=== PATIENT | female | born 1945 | race Caucasian/White ===

== ENCOUNTER 2024-12-05 11:40 | Inpatient (IN) | payer MEDICARE, SELFPAY ==
[2024-12-05] VITALS (11 sets, daily range): BP systolic 90–114; BP diastolic 44–94; BMI 44.6; BMI 41.7
[2024-12-05 08:38] LABS: % Basophils 0.1 % (0-2); % Eosinophils 0.1 % (0-6); % Immature Granulocytes 0.3 % (0-0.5); % Lymphocytes 5.2 % (20.5-51.1); % Monocytes 11.1 % (1.7-9.3); % Neutrophils 83.2 % (42.2-75.2); Absolute Lymphocytes 0.5 10^3/uL (1.2-3.4); Absolute Neutrophils 7.8 10^3/uL (1.4-6.5); Hematocrit 37.1 % (37.0-47.0); Hemoglobin 12.1 g/dL (12.0-16.0); Mean Corp Hgb Conc. 32.6 g/dL (33.0-37.0); Mean Corpuscular Hgb 30.4 pg (27.0-31.0); Mean Corpuscular Volume 93.2 fL (81.0-99.0); Nucleated Red Blood Cells % 0 %; Platelet Count 217 10^3/uL (130-400); Red Blood Cell Count 3.98 10^6/uL (4.20-5.40); Red Cell Dist. Width 17.1 % (11.5-14.5); White Blood Cell Count 9.3 10^3/uL (4.8-10.8)
[2024-12-05 08:58] LABS: ALT (SGPT) 26 U/L (0-35); AST (SGOT) 39 U/L (14-36); Albumin 4.2 g/dl (3.5-5.0); Alkaline Phosphatase 120 U/L (38-126); Blood Urea Nitrogen 24 mg/dl (7-17); Calcium 10.2 mg/dl (8.4-10.2); Carbon Dioxide 22 mmol/L (22-30); Chloride 107 mmol/L (98-107); Estimated Creatinine Clearance 48 ml/min; Glucose 83 mg/dl (70-99); Potassium 4.4 mmol/L (3.5-5.1); Sodium 142 mmol/L (135-145); Total Bilirubin 2.7 mg/dl (0.2-1.3); Total Protein 6.9 g/dl (6.3-8.2)
[2024-12-05 09:05] LABS: Urine Albumin 2+ (Neg - Trace); Urine Bilirubin 1+ (Negative); Urine Character Slightly Cloudy (Clear); Urine Color Yellow; Urine Glucose Negative (Negative); Urine Ketone 3+ (Negative); Urine Leukocyte Negative (Negative); Urine Nitrite Positive (Negative); Urine Occult Blood 1+ (Negative); Urine Specific Gravity 1.025 (<1.030); Urine Urobilinogen 1+ (Neg - 1+)
[2024-12-05 09:16] LABS: COVID-19 Antigen Negative (Negative)
--- NOTE | 2024-12-05 09:17 | ED.GENMED ---
History of Present Illness
General
Chief Complaint: Malaise
Source: patient
Exam Limitations: none
Time Seen by Provider: 12/05/24 08:14
History of Present Illness
History of Present Illness:
79-year-old female presents via EMS from facility. Staff at facility noticed increased weakness and hallucinations. They noted her to be confused. Patient denies any pain. There was no reported fever or cough. No other complaints at this time
Past History
Past History
ED Past Medical History: Arrthythmia (Atrial fib), Asthma, HTN, Hypercholesterolemia, Psychiatric (Anxiety, Depression) and Other (arthritis, chronic constipation, Colitis, GI bleeding, Cellulitis, Ulcers, Hemorrhoids, Chronic peripheral edema, )
ED Past Surgical History: Appendectomy, (X 1), Tonsilectomy and Urological (Bladder lift)
Social History
Tobacco: Non-smoker
Alcohol: None
Personal:
Living: alone
Phy Exam
Physical Exam
Physical Exam:
General: Well-developed female unkempt no acute respiratory distress
HEENT normocephalic atraumatic
Heart: Regular rate and rhythm
Lungs: Clear no wheeze
Abdomen is soft nontender nondistended
Extremities: No cyanosis but significant edema
Skin: Multiple areas of skin breakdown. There is intertrigo rash of the inguinal region. There is excoriation and subtle skin breakdown of the sacral region. There is erythema and blistering noted to the lower legs bilaterally
Course
Orders/Labs/Results
Orders:
Orders
12/05/24 08:29
CMP [Comprehensive Metabolic Panel] Urgent
Complete Blood Count/With Diff Urgent
NT-proBNP Urgent
Comment: ADD ON
12/05/24 08:46
CR Chest Portable - 1 View Urgent
Comment:
Reason For Exam: weakness
Reason Study Needs to be Portable: Unable to Transport
12/05/24 08:50
COVID-19 Antigen Urgent
Source: Nasal Swab
Urinalysis Reflex To Culture Urgent
Date Specimen was Collected: 12/05/24
Time Specimen was Collected: 08:48
Urine Microscopic Reflex Cult Urgent
Influenza A+B Rapid Molecular Urgent
TRACEY Source: Nasal Swab
Specimen Description:
Urine Culture Urgent
TRACEY Source: U
Specimen Description:
Date Specimen was Collected: 12/05/24
Time Specimen was Collected: 08:48
12/05/24 09:20
Add On- LAB Urgent
Tests Added?: bnp
12/05/24 11:14
0.9% Sodium Chloride 500 ml [Nss] 500 ml IV BOLUS
CefTRIAXone [Rocephin] 1,000 mg IV NOW STA
Abnormal Lab Results
12/05/24 12/05/24
08:29 08:50
RBC 3.98 L 10^6/uL
(4.20-5.40)
MCHC 32.6 L g/dL
(33.0-37.0)
RDW 17.1 H %
(11.5-14.5)
MPV 11.0 H fL
(7.4-10.4)
Absolute Neuts (auto) 7.8 H 10^3/uL
(1.4-6.5)
Absolute Lymphs (auto) 0.5 L 10^3/uL
(1.2-3.4)
Absolute Monos (auto) 1.0 H 10^3/uL
(0.1-0.6)
Neutrophils % 83.2 H %
(42.2-75.2)
Lymphocytes % 5.2 L %
(20.5-51.1)
Monocytes % 11.1 H %
(1.7-9.3)
BUN 24 H mg/dl
(7-17)
Creatinine 1.1 H mg/dL
(0.6-1.0)
Total Bilirubin 2.7 H mg/dl
(0.2-1.3)
AST 39 H U/L
(14-36)
Urine Ketones 3+ A
(Negative)
Ur Occult Blood Reflex 1+ A
(Negative)
Urine Nitrite (Reflex) Positive A
(Negative)
Urine Bilirubin 1+ A
(Negative)
Urine RBC 3-6 A /HPF
(0-2)
Urine WBC (Reflex) 16-20 A /HPF
(0-5)
Urine Bacteria (Reflex) Many A
(Negative)
Urine Albumin (Reflex) 2+ A
(Neg - Trace)
12/05/24 08:29
12/05/24 08:29
Vital Signs
Initial and Last Documented VS:
Initial Vital Signs
Temp Pulse Resp BP Pulse Ox
97.6 F 107 16 113/78 95
12/05/24 08:18 12/05/24 08:18 12/05/24 08:18 12/05/24 08:18 12/05/24 08:18
Last Documented Vital Signs
Temp Pulse Resp BP Pulse Ox
97.6 F 93 19 90/55 95
12/05/24 08:18 12/05/24 10:00 12/05/24 10:00 12/05/24 10:00 12/05/24 08:21
MDM/Problems Addressed
Differential Diagnosis Includes:
Weakness reported hallucinations. Question metabolic versus infectious. COVID and flu ordered. Urinalysis pending. Chest x-ray pending labs pending
*Critical Care Note
Total Time (30-74mins, 75-104mins- exclusive of procedures): Not Applicable
Update Note
Update Note:
Workup consistent with UTI. Blood pressure remains on the softer side 90s over 40s. Patient is slightly volume overloaded on exam but would benefit from some fluids. 500 was ordered. Rocephin ordered. Given encephalopathy likely related to
urinary tract infection will admit to hospital
ED Attending Note
-
Portions of this chart may have been created with voice recognition software.� Occasional wrong word or��sound alike� substitutions may have occurred due to the inherent limitations of voice recognition software.
Discharge Plan
Departure
Patient Disposition: Admit
Date of Disposition: 12/05/24
Time of Disposition: 11:19
Presentation/result/management discussed w/ accepting MD/DO: Hospitalist
Discharge Problem:
Acute UTI
Prescriptions:
No Action
amiodarone 200 mg Tablet
200 mg PO Q12H
sucralfate [Carafate] 1 gram Tablet
1 g PO BID
pantoprazole [Protonix] 40 mg Tablet,Delayed Release (Dr/Ec)
40 mg PO DAILY
dabigatran etexilate [Pradaxa] 75 mg Capsule
75 mg PO Q12H
magnesium oxide 400 mg magnesium Tablet
400 mg PO DAILY
acetaminophen [Tylenol] 325 mg Tablet
650 mg PO Q6H PRN (Reason: MILD PAIN)
therapeutic multivitamin Tablet
1 tab PO DAILY
ferrous sulfate 325 mg (65 mg iron) Tablet
325 mg PO DAILY
sertraline 25 mg Tablet
25 mg PO HS
mirtazapine 7.5 mg Tablet
7.5 mg PO HS
furosemide 40 mg Tablet
40 mg PO TUTHSA
Patient Comments:
06/30/2023, patient's family member believes that patient may have taken this medication on Friday (06/29/2023) to reduce swelling, but is unsure, family member states that patient took this medication on Friday.
sennosides [senna] 8.6 mg Tablet
8.6 mg PO DAILY
melatonin 3 mg Tablet
3 mg PO HS PRN (Reason: sleep)
levothyroxine 25 mcg Tablet
25 mcg PO DAILY AT 0700
nystatin [Nystop] 100,000 unit/gram Powder
1 applic TOPICAL BID
cholecalciferol (vitamin D3) 25 mcg (1,000 unit) Tablet
25 mcg PO HS
white petrolatum [Hydrophor] 42 % ointment
1 applic topical DAILYPRN PRN (Reason: dry skin)
pantoprazole 40 mg Tablet,Delayed Release (Dr/Ec)
40 mg PO DAILY Qty: 30 0RF
guaifenesin 600 mg Tablet Extended Release 12hr
600 mg PO Q12 Qty: 14 0RF
doxycycline hyclate 100 mg Capsule
100 mg PO Q12 Qty: 4 0RF
miconazole nitrate [Miconazorb AF] 2 % Powder
1 applic topical BID Qty: 85 0RF
cephalexin 500 mg Capsule
500 mg PO QID Qty: 10 0RF
alprazolam [Xanax] 0.25 mg Tablet
0.25 mg PO HS PRN (Reason: Mental Health/Anxiety) Qty: 5 0RF
Rx Instructions:
06/30/2023, patient filled this medication on 06/27/2023 for 30 tablets according to PDMP.
Referrals:
Luis Fernando Abrams MD [Family Provider] -
Interventions
Interventions:
*Risk Screen - Suicide Last Done: 12/05/24 08:18
*General Assessment Last Done: 12/05/24 08:18
*Neglect/Abuse Screening Last Done: 12/05/24 08:18
*ED- Fall Risk Assessment Last Done: 12/05/24 08:18
*ED COVID-19 Vaccine History Last Done: 12/05/24 08:18
Discharge Date and Time
Print Language: ALBANIAN
[2024-12-05 09:40] LABS: Urine Bacteria Many (Negative); Urine White Cell 16-20 /HPF (0-5)
[2024-12-05 11:09] LABS: NT-proBNP 3970 pg/ml
--- NOTE | 2024-12-05 11:20 | HPS.HSE ---
Addendum entered and electronically signed by Claudy Lua MD 12/05/24 15:33:
Addendum
Patient arrived to the floor and started to have low temperature. Blood pressure is stable
Constellation of metabolic encephalopathy/UTI/hypothermia/Tachycardia could be sepsis/septic shock POA
Change antibiotic regimen to IV cefepime/IV vancomycin
Order heating blanket
Order lactic acid
End
Original Note:
Family Physician
-
Family Physician: Luis Fernando Abrams
Chief Complaint
-
Weakness with visual hallucination at correction
History of Present Illness
79 years old female was transferred from correction for weakness and visual hallucination. History taken from the ER doctor. Patient was seeing cats and reportedly weak at correction. No fever. No hypoxia. In the ER, she did not have
leukocytosis. Urine was cloudy and started on intravenous antibiotic for urine tract infection. Patient was noticed to have severe cellulitic/erythematous skin/fungal infection of lower abdominal wall and groins. Noticed to have bruising on lower
pelvic area. No history of falls reported.
I called her son and he reported that patient was fairly independent 2 weeks ago but started to decline with weakness. Last week, she has been mostly in bed and not moving with lethargy. No history of falls. No history of fevers
Medical History
Past Medical History
Past Medical History: Reports Other (Obesity, chronic lymphedema, hypertension, hyperlipidemia, and anxiety, persistent atrial fibrillation, diastolic heart disease, history of cellulitis, obesity, GERD.)
Past Surgical History: Reports Other (No recent major surgery)
Social History
Tobacco: Non-smoker
Alcohol: None
Drug: None
Personal: Single
Living: Long-Term
Employment: Not Employed
Family History
Family History: Not pertinent
Allergies / Home Medications
Allergies reflects when Allergies were last updated in [facility].
Home Medications with original date entered in [facility]
Allergy/Medication List:
Allergies
Allergy/AdvReac Type Severity Reaction Status Date / Time
Penicillins Allergy Afib/RVR; Verified 06/29/23 23:51
tolerates
cephalosporin
Home Medications
amiodarone 200 mg tablet 200 mg PO DAILY Arrhythmia 06/06/22
dabigatran etexilate 75 mg capsule (Pradaxa) 75 mg PO Q12H Blood clot prevention/tx 06/06/22
magnesium oxide 400 mg PO DAILY Supplement 06/06/22
pantoprazole 40 mg tablet,delayed release (Protonix) 40 mg PO DAILY Gastrointestinal issue 06/06/22
sucralfate 1 gram tablet (Carafate) 1 g PO BID Gastrointestinal issue 06/06/22
mirtazapine 7.5 mg tablet 7.5 mg PO HS MENTAL HEALTH 01/16/23
sertraline 25 mg tablet 25 mg PO HS 01/16/23
therapeutic multivitamin 1 tab PO DAILY Supplement 01/16/23
cholecalciferol (vitamin D3) 25 mcg (1,000 unit) tablet 25 mcg PO DAILY Supplement 06/30/23
furosemide 40 mg tablet 40 mg PO DAILY Fluid Retention/Swelling 06/30/23
levothyroxine 25 mcg tablet 25 mcg PO DAILY AT 0700 Thyroid 06/30/23
nystatin 100,000 unit/gram topical powder (Nystop) 1 applic topical BID 06/30/23
sennosides 8.6 mg tablet (senna) 8.6 mg PO BID Constipation 06/30/23
acetaminophen 500 mg tablet 1,000 mg PO BIDPRN PRN mild pain 12/05/24
alginate dressing 2' X 2' (Restore Calcium Alginate) 1 ea topical MOWEFR 12/05/24
alprazolam 0.25 mg tablet (Xanax) 0.25 mg PO HS 12/05/24
biotin 10,000 mcg chewable tablet (Hair, Skin and Nails (biotin)) 10,000 mcg PO DAILY 12/05/24
brimonidine 0.2 % eye drops 2 drp BOTH EYES DAILY 12/05/24
ceramides 1,3,6-II (CeraVe topical cream) 1 applic topical DAILYPRN PRN dry skin 12/05/24
cyanocobalamin (vitamin B-12) 5,000 mcg sublingual tablet (Vitamin B-12) 5,000 mcg sublingual DAILY 12/05/24
diphenhydramine HCl 25 mg tablet 1 mg PO Q6HPRN PRN itchiness 12/05/24
guaifenesin 600 mg tablet, extended release 12 hr 600 mg PO BIDPRN PRN cough 12/05/24
loratadine 10 mg tablet 10 mg PO DAILY PRN allergies 12/05/24
loteprednol etabonate 0.38 % eye gel drops (Lotemax SM) 1 drp BOTH EYES DAILY 12/05/24
sodium chloride 5 % eye drops 1 drp BOTH EYES DAILY 12/05/24
triamcinolone acetonide 0.1 % lotion 1 applic topical BIDPRN PRN itching 12/05/24
white petrolatum 71.3 % topical ointment (Desitin Multi-Purpose) 1 applic topical DAILYPRN PRN sores 12/05/24
Review of Systems
-
History Source: Patient (Review of system not reliable as patient was lethargic and mostly sleepy)
A 12 point ROS was completed and negative except as noted: Yes
Constitutional: Denies Fever
EENT: Denies Sore Throat
Respiratory: Denies Cough
Cardiac: Denies Chest Pain
Abdomen/GI: Denies Abdominal Pain
: Denies Frequency
Musculoskeletal: Denies Joint Pain
Skin: Denies Itching
Neurological: Denies Headache or Numbness
Psych: Denies Panic Disorder
Physical Exam
Vital Signs
Vital Signs
Temp Pulse Resp BP Pulse Ox
97.6 F 93 19 90/55 95
12/05/24 08:18 12/05/24 10:00 12/05/24 10:00 12/05/24 10:00 12/05/24 08:21
Physical Exam
General: No Apparent Distress and Morbidly Obese; No Pain
HEENT: Moist mucous membranes and Atraumatic
Respiratory: Decreased Breath Sounds; No Wheezes
Cardiac: S1/S2 and Regular Rhythm
GI: Soft (Obese, nontender)
Skin: Rash (Erythematous rash lower abdominal, groin sloughing of skin with odor )
Neuro: Awake (Fall back a sleep with snoring while examining her, she followed simple commands. )
Psych: Calm; No Agitated
Laboratory Results
-
12/05/24 08:29
12/05/24 08:29
Laboratory Results
Total Bilirubin 2.7 mg/dl (0.2-1.3) H 12/05/24 08:29
AST 39 U/L (14-36) H 12/05/24 08:29
ALT 26 U/L (0-35) 12/05/24 08:29
Alkaline Phosphatase 120 U/L (38-126) 12/05/24 08:29
Impression/Plan
-
79 years old female was brought in from correction with confusion and weakness
#Weakness with history of visual hallucination, likely toxic metabolic encephalopathy
Admit the patient to the hospital
Patient is arousable, followed commands but falls back asleep with snoring
History of seizure. No history of fever or headache. No hypoxia detected
Will do CAT scan of the head to rule out major pathology as patient on anticoagulation therapy
Will treat possible urinary tract infection
Will do blood culture x 2
Negative COVID and influenza
Empiric IV Rocephin for now
Follow-up with urine culture
Monitor on telemetry
# Hypotension, seems chronic
Will give gentle IV fluid, on clinical examination, positive bilateral edema/lymphedema and chest x-ray consistent with mild interstitial/alveolar cardiogenic pulmonary edema
Will continue with monitoring.
As needed midodrine.
# Lower abdominal wall/bilateral groin/lower pelvic/buttock area bruising erythema with odorous fungal infection
Will start wound care with clotrimazole antifungal
Consult wound care nurse
Check CPK
No history of fall per son( Ashish) but has been in bed for a week and not much ambulatory.
# Chronic bilateral lower extremity lymphedema
Morbid obesity
Continue with daily Lasix
# History of persistent A-fib.
Will get EKG
Per records, she is on amiodarone only. Possibly not on rate control medication due to history of low blood pressure,
# History of anxiety
Continue home medications hold
Nighttime mirtazapine, sertraline until mentation improves
# History of GERD, continue PPI, Carafate
# Renal insufficiency. Suspect underlying CKD 3A
Monitor renal function.
Total time spent to see the patient, examine the patient, review data and lab results, discuss treatment plan with patient, nursing staff, ER doctor around 75 minutes. �
[2024-12-05] MEDS: ROCEPHIN 1000 MG IV (11:53)
[2024-12-05] MEDS: NSS 500 IV (11:54)
--- NOTE | 2024-12-05 13:38 | CM ---
Patient resting in ED when seen. Patient from [facility] and per chart review lives in an independent apartment. Patient has had [facility] in the past. Patient has been to [facility] and [facility] in the past.
Patient PCP is Dr. Abrams and [place] [facility] is the pharmacy of choice. CM called to patient son Ashish Frank. Per Ashish patient uses wheelchair that she self propels or her walker. Patient normally alert and oriented. Patient family plan
for her to return to apartment when medically appropriate. Patient has her hearing aides and cell phone with her per son. Patient has [facility] care nurses [facility] per son. CM texted phone number for CM office to
patient son phone at his request. CM will continue to follow for discharge planning needs.
Plan; home with VN vs SNF pending medical treatment plan
[2024-12-05] MEDS: NSS 1000 IV (15:00)
[2024-12-05] MEDS: TYLENOL 1000 MG PO (15:00)
[2024-12-05] MEDS: VANCOCIN 530 MG IV (16:30)
[2024-12-05] MEDS: STERILE WATER FOR INJECTION 10 ML IV (16:30)
[2024-12-05] MEDS: MAXIPIME 1000 MG IV (16:30)
[2024-12-05] MEDS: PRADAXA 75 MG PO (17:47)
--- NOTE | 2024-12-05 19:19 | PHA.VAN.IN ---
Assessment
- Assessment
Renal Function: Appears similar to baseline
Historical Micro: History of MRSA infection
- Previous Dosing Experience
Previous Regimen: Vancomycin 1500mg IV Q24h
Date of Regimen: December 2022
Provided Trough of: 13
Provided AUC of: 529
Patient's SCR is: Similar to previous dosing experience
Patient's weight is: Similar to previous dosing experience
AUC Dosing Plan
- Dosing Variables
Dosing Weight (kg): 109.9
Dosing CrCl (ml/min): 49
Vd coefficient (L/kg): 0.5
- Empiric Dosing
Initial / Loading Dose: Vancomycin 1500mg administered 12/05 at 1630
Maintenance Regimen: Vancomycin 1250mg IV Q24h to start 12/06 at 0600
Estimated AUC (mcg*h/mL): 522
Estimated Peak (mcg*h/mL): 34.4
Estimated Trough (mcg/ml): 12.5
Estimated Half Life (H): 15.4
- Monitoring
No levels ordered at this time: Will order levels prior to steady state.
Pharmacokinetics Vancomycin I
- -
Patient Age: 79
Patient Sex: Female
Vancomycin Day #: 1
Indication: Bacteremia
Requesting Provider: Dr. Lua
Pertinent Antimicrobial Allergies:
Penicillins Allergy (Verified 06/29/23 23:51)
Afib/RVR; tolerates cephalosporin
Height / Weight:
Height 5 ft 4 in
Actual Weight 109.996 kg
Pertinent Past Medical History: BMI ~41
- Vital Signs / Lab Results
Temp Pulse Resp BP Pulse Ox
95.8 F L 115 20 114/78 96
12/05/24 18:45 12/05/24 15:15 12/05/24 15:15 12/05/24 15:15 12/05/24 15:15
Lab Results - Hematology
12/05/24
08:29
WBC 9.3
Lab Results - Chemistry
12/05/24
08:29
BUN 24 H
Creatinine 1.1 H
Estimated Creat Clear 48
Albumin 4.2
Lab Results - Urine
12/05/24
08:50
Urine Nitrite (Reflex) Positive A
Leukocyte Esterase Rfl Negative
Urine WBC (Reflex) 16-20 A
Ur Squamous Epith Cells 6-10
Urine Bacteria (Reflex) Many A
Microbiology Results
12/05/24 08:50 Influenza Types A & B (RACHEL) - Final
Nasal Swab Negative for Influenza A & B, NAAT
Negative results must be combined with clinical observations
and patient history.
Nucleic Acid Amplification test (NAAT)performed on the
[employer] platform.
[2024-12-05 19:30] LABS: Lactic Acid 0.9 mmol/L (0.7-2.0)
[2024-12-05 19:39] LABS: Creatine Phosphokinase 141 U/L (30-135)
[2024-12-05] MEDS: CARAFATE 1 GRAM PO (21:14)
[2024-12-05] MEDS: DESENEX/MITRAZOL/ZEASORB 1 APPLIC TOPICAL (21:14)
[2024-12-05] MEDS: SENOKOT 17.2 MG PO (21:15)
[2024-12-05] MEDS: LOTRIMIN 1% CREAM 1 APPLIC TOPICAL (21:15)
[2024-12-05] MEDS: REFRESH CELLUVISC GEL 1 DROPS OPHTH (22:41)
[2024-12-05] MEDS: XANAX PO (23:11)
[2024-12-06] VITALS (7 sets, daily range): BP systolic 89–120; BP diastolic 53–81; PULSE 105–114; O2SAT 95–96; BMI 41.7
[2024-12-06] MEDS: NSS 1000 IV ×2 (00:06→09:14)
[2024-12-06] MEDS: STERILE WATER FOR INJECTION 10 ML IV ×4 (00:33→23:12)
[2024-12-06] MEDS: MAXIPIME 1000 MG IV ×4 (00:33→23:12)
[2024-12-06] MEDS: VANCOCIN 275 MG IV (07:20)
[2024-12-06] MEDS: SYNTHROID 25 MCG PO (07:20)
[2024-12-06] MEDS: PRADAXA 75 MG PO ×2 (07:39→17:43)
[2024-12-06 08:27] LABS: Hematocrit 33.6 % (37.0-47.0); Hemoglobin 10.8 g/dL (12.0-16.0); Mean Corp Hgb Conc. 32.1 g/dL (33.0-37.0); Mean Corpuscular Hgb 30.3 pg (27.0-31.0); Mean Corpuscular Volume 94.1 fL (81.0-99.0); Mean Platelet Volume 10.9 fL (7.4-10.4); Platelet Count 207 10^3/uL (130-400); Red Blood Cell Count 3.57 10^6/uL (4.20-5.40); White Blood Cell Count 7.8 10^3/uL (4.8-10.8)
--- NOTE | 2024-12-06 08:43 | W.PN.HOSP.TC ---
Today's Communication/Plan
-
Antibiotics.
Assessment / Plan
Assessment / Plan
Physical exam:
General: Acute on chronically ill
HEENT: Normocephalic, Atraumatic and Moist Mucous Membranes
Respiratory: Clear to Auscultation; Negative Wheezes, Rales or Rhonchi
Cardiac: Irregular rate and rhythm, tachycardic, and S1/S2
GI: Soft, Nontender and Nondistended
Skin: Extensive rash in bilateral groin and lower abdomen area. Venous stasis changes in both lower extremities as well.
Musculoskeletal: No Clubbing, No Cyanosis. Bilateral lower extremity edema
Neuro: Awake, Alert and Oriented, generalized weakness.
Psych: Calm
A/P:
Probable sepsis, ?uti ?ssti:
On IV cefepime and vancomycin
Follow-up cultures and streamline antibiotics depending on results
On IV fluid-stop IV fluids today
ID consult-discussed with ID via [place] text
Discussed with son over the phone today
Metabolic encephalopathy:
Improving
Continue to monitor mental status
Hypothermia:
Improving
Check TSH
Hypotension:
Chronic hypotension
Check cortisol level in a.m.
Restart midodrine schedule and slightly higher doses on 5 mg 3 times daily for now and then reevaluate.
Stop IV fluids and reevaluate as well.
Persistent A-fib with RVR:
Exacerbated by acute illness
On antiarrhythmics, amiodarone 200 mg p.o. daily
On anticoagulation Pradaxa 75 mg twice a day
Not on rate control agents
Add IV Lopressor as needed
Continue library monitor
Obtain twelve-lead EKG today
Chronic diastolic CHF:
Stop IV fluid
Continue oral diuretics
Monitor volume status closely
Chronic lymphedema:
Wound care
Groin candidiasis:
Continue Desenex and clotrimazole
Anxiety:
Continue benzos as needed
Hypothyroidism:
Continue levothyroxine 25 mcg p.o. daily
Update TSH in a.m.
GERD:
Continue PPI and sucralfate
Obesity:
Lifestyle changes warranted
DVT prophylaxis:
On Pradaxa
CODE STATUS:
Full code
Total time spent on today's encounter was 52 minutes which included time spent in counseling the patient/family regarding diagnosis and treatment plan as listed above, goals of care, and symptom management. Case was discussed with nursing staff,
specialists, and care coordinators/case management. All labs and imaging personally reviewed by me. Remainder the time spent in detailed review of previous records, lab data, imaging, and other medical provider documentation.
Anticipated Discharge: > 48 hours
Subjective/Interval History
-
Date of Service: December 06, 2024
Patient more alert this morning and oriented. Denies nausea or vomiting. Afebrile
Objective Data
-
Labs:
Laboratory Results
12/06/24
07:47
WBC 7.8
Hgb 10.8 L
Hct 33.6 L
Plt Count 207
Sodium Pending
Potassium Pending
Chloride Pending
Carbon Dioxide Pending
BUN Pending
Creatinine Pending
Glucose Pending
Calcium Pending
Vital Signs:
Vital Signs
Temp Pulse Resp BP Pulse Ox
97.7 F 124 18 113/81 95
12/06/24 07:30 12/06/24 07:30 12/06/24 07:30 12/06/24 07:30 12/06/24 07:30
I&O
12/05/24 12/06/24 12/07/24
06:59 06:59 06:59
Intake Total 360 / 360
Balance 360 / 360
[2024-12-06 08:50] LABS: Blood Urea Nitrogen 21 mg/dl (7-17); Calcium 9.1 mg/dl (8.4-10.2); Carbon Dioxide 25 mmol/L (22-30); Chloride 109 mmol/L (98-107); Estimated Creatinine Clearance 49 ml/min; Glucose 88 mg/dl (70-99); Sodium 140 mmol/L (135-145)
[2024-12-06] MEDS: MAG-TAB SR 84 MG PO (09:10)
[2024-12-06] MEDS: ALPHAGAN 0.2% EYE DROPS 2 DROP BOTH EYES (09:10)
[2024-12-06] MEDS: PROTONIX 40 MG PO (09:10)
[2024-12-06] MEDS: PACERONE 200 MG PO (09:10)
[2024-12-06] MEDS: CARAFATE 1 GRAM PO ×2 (09:10→20:04)
[2024-12-06] MEDS: LASIX 40 MG PO (09:10)
[2024-12-06] MEDS: LOTRIMIN 1% CREAM 1 APPLIC TOPICAL ×2 (09:11→20:05)
[2024-12-06] MEDS: DESENEX/MITRAZOL/ZEASORB 1 APPLIC TOPICAL ×2 (09:13→20:06)
[2024-12-06] MEDS: TYLENOL PO (09:18)
--- NOTE | 2024-12-06 09:22 | PHA.VAN.FU ---
Vancomycin Assessment / Plan
- Assessment
Renal Function: Stable (1.1)
WBC's are: WNL (7.8)
In the past 24 hrs, patient has been: Afebrile
Concomitant Antimicrobials: Cefepime
- Dosing Plan
Continue: Vanco 1250mg Q24H
- Monitoring Plan
No level(s) ordered at this time: Consider in the next few days
- Follow Up
Pharmacy will continue to follow.
Vancomycin Follow UP
- -
Patient Age: 79
Patient Sex: Female
Vancomycin Day #: 2
Indication: Bacteremia
Requesting Provider: Dr. Lua
Pertinent Antimicrobial Allergies:
Penicillins Allergy (Verified 06/29/23 23:51)
Afib/RVR; tolerates cephalosporin
Height / Weight:
Height 5 ft 4 in
Actual Weight 109.996 kg
Pertinent Past Medical History: BMI ~41
- Vital Signs / Lab Results
Temp Pulse Resp BP Pulse Ox
97.7 F 124 18 113/81 95
12/06/24 07:30 12/06/24 09:10 12/06/24 07:30 12/06/24 09:10 12/06/24 07:30
Lab Results - Hematology
12/05/24 12/06/24
08:29 07:47
WBC 9.3 7.8
Lab Results - Chemistry
12/05/24 12/06/24
08:29 07:47
BUN 24 H 21 H
Creatinine 1.1 H 1.1 H
Estimated Creat Clear 48 49
Albumin 4.2
12/05/24
19:07
Lactic Acid 0.9
Lab Results - Urine
12/05/24
08:50
Urine Nitrite (Reflex) Positive A
Leukocyte Esterase Rfl Negative
Ur Squamous Epith Cells 6-10
Microbiology Results
12/05/24 08:50 Influenza Types A & B (RACHEL) - Final
Nasal Swab Negative for Influenza A & B, NAAT
Negative results must be combined with clinical observations
and patient history.
Nucleic Acid Amplification test (NAAT)performed on the
[employer] platform.
[2024-12-06] MEDS: ProAmatine 5 MG PO ×2 (12:58→17:48)
[2024-12-06] MEDS: LOPRESSOR 5 MG IV (13:01)
--- NOTE | 2024-12-06 13:01 | WOUNDNOTE ---
ABDOMINAL SKIN FOLDS
--- NOTE | 2024-12-06 13:03 | WOUNDNOTE ---
SACRUM/PERIANAL/POSTERIOR THIGHS
--- NOTE | 2024-12-06 13:04 | WOUNDNOTE ---
R POSTERIOR LOWER LEG
[2024-12-06] MEDS: TYLENOL 1000 MG PO (13:05)
--- NOTE | 2024-12-06 13:05 | WOUNDNOTE ---
L LATERAL PROXIMAL LEG, DISTAL TO KNEE
--- NOTE | 2024-12-06 13:06 | WOUNDNOTE ---
WON RN note: Patient admitted with acute UTI
See H&P for complete history.
PMH:Obesity, A-fib, HTN, hyperlipidemia, colitis, GI bleed, frequent urination, arthritis and venous leg ulcers.
Wound Location and type/assessment: Patient known to service, last seen 01/21/23 for RLE open blister. Assessed patient with assist of nurse Heike and PCT. both legs with scattered open and closed blisters, pink base. + pulses bilaterally, 2+ leg
edema. Heels intact, dry patches of skin on plantar heels. Severe MASD in groin, abdomen, breast and thigh skin folds. Moist weepy serous drainage with foul odor. Back with scattered rash, patient reports she has had for a long time. She states a
want ad receiver looked at rash and did not know what it was. Posterior thighs blanchable purple, moist, with shearing. Suspect chronic skin discoloration from prolonged sitting, patient gets oob to wheelchair she states. Perianal skin with incontinent
associated skin damage. Patient incontinent of large amt of urine, saturated pad and sheets. Skin care given by nurse and fungal powder applied. Clotrimazole cream already on order.
Appetite: States good appetite
Pressure redistribution devices in place: Static Air Overlay to be applied to bed. Called [facility] for b[facility] air cushion.
Plan: Local wound care applied to legs and moisturized with Vaseline, will order mineral oil. Zeyad wraps applied knee high and pillow placed under calves. Recommend apply Clotrimazole to back but use fungal powder for skin folds with cut pieces of
alginate and folded ABD pads to absorb moisture. fungal powder also to thighs and buttocks bid. Recommended to Dr. Layla MIRAMONTES fungal treatment and defer to hospitalist to order.
Will confirm orders with hospitalist and updated nurse. Brought in air overlay to , nurse will apply when able.
Updated care plan and will follow as needed. Bariatric air cushion given to nurse to bring into .
Note to case management of equipment requested for discharge: Caregivers at home to assist with bathing.
Recommend follow up at wound care center upon discharge.
[2024-12-06] MEDS: ProAmatine PO (14:00)
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
[2024-12-06] MEDS: REFRESH CELLUVISC GEL 1 DROPS OPHTH (22:36)
[2024-12-06] MEDS: SENOKOT 17.2 MG PO (22:36)
[2024-12-06] MEDS: XANAX 0.25 MG PO (22:37)
[2024-12-07] VITALS (9 sets, daily range): BP systolic 100–121; BP diastolic 64–80; BMI 42.8
[2024-12-07] MEDS: SYNTHROID 25 MCG PO (04:47)
[2024-12-07] MEDS: PRADAXA 75 MG PO (04:47)
[2024-12-07] MEDS: VANCOCIN 275 MG IV (04:48)
[2024-12-07 08:04] LABS: ALT (SGPT) 18 U/L (0-35); AST (SGOT) 22 U/L (14-36); Albumin 2.8 g/dl (3.5-5.0); Alkaline Phosphatase 102 U/L (38-126); Blood Urea Nitrogen 17 mg/dl (7-17); Calcium 9.1 mg/dl (8.4-10.2); Carbon Dioxide 27 mmol/L (22-30); Chloride 110 mmol/L (98-107); Direct Bilirubin 0.4 mg/dl (0.0-0.4); Estimated Creatinine Clearance 50 ml/min; Glucose 88 mg/dl (70-99); Potassium 3.6 mmol/L (3.5-5.1); Sodium 141 mmol/L (135-145); Total Bilirubin 1.2 mg/dl (0.2-1.3); Total Protein 5.3 g/dl (6.3-8.2)
--- NOTE | 2024-12-07 08:23 | W.PN.HOSP.TC ---
Addendum entered and electronically signed by Aldo Rich MD 12/07/24 13:30:
a fib not well controlled--> will get cardio c/s
Addendum entered and electronically signed by Aldo Rich MD 12/07/24 12:23:
tsh and cortisol decent levels
Original Note:
Today's Communication/Plan
-
IV antibiotics
Assessment / Plan
Assessment / Plan
Physical exam:
General: Acute on chronically ill
HEENT: Normocephalic, Atraumatic and Moist Mucous Membranes
Respiratory: Clear to Auscultation; Negative Wheezes, Rales or Rhonchi
Cardiac: Irregular rate and rhythm, tachycardic, and S1/S2
GI: Soft, Nontender and Nondistended
Skin: Extensive rash in bilateral groin and lower abdomen area. Venous stasis changes in both lower extremities as well.
Musculoskeletal: No Clubbing, No Cyanosis. Bilateral lower extremity edema
Neuro: Awake, Alert and Oriented, generalized weakness.
Psych: Calm
A/P:
Sepsis due to UTI:
On IV cefepime and vancomycin. Likely will stop vancomycin later today
Urine culture growing gram-negative bacilli
Follow-up cultures
Off IV fluids
ID consult appreciated
Discussed with son over the phone yesterday
Metabolic encephalopathy:
Improving
Continue to monitor mental status
Hypothermia:
Improving
Check TSH
Hypotension:
Chronic hypotension
Check cortisol level
Restarted midodrine schedule and slightly higher doses on 5 mg 3 times daily for now and then reevaluate.
Stopped IV fluids since 12/06.
Persistent A-fib with RVR:
Exacerbated by acute illness
On antiarrhythmics, amiodarone 200 mg p.o. daily
On anticoagulation Pradaxa 75 mg twice a day
Not on rate control agents
Add IV Lopressor as needed
Continue patient monitor
Obtained twelve-lead EKG and A-fib RVR.
Chronic diastolic CHF:
Off IV fluid
Continue oral diuretics
Monitor volume status closely
Chronic lymphedema:
Wound care
Groin candidiasis:
Continue Desenex and clotrimazole
Anxiety:
Continue benzos as needed
Hypothyroidism:
Continue levothyroxine 25 mcg p.o. daily
Update TSH
GERD:
Continue PPI and sucralfate
Obesity:
Lifestyle changes warranted
DVT prophylaxis:
On Pradaxa
CODE STATUS:
Full code
Total time spent on today's encounter was 52 minutes which included time spent in counseling the patient/family regarding diagnosis and treatment plan as listed above, goals of care, and symptom management. Case was discussed with nursing staff,
specialists, and care coordinators/case management. All labs and imaging personally reviewed by me. Remainder the time spent in detailed review of previous records, lab data, imaging, and other medical provider documentation.
Anticipated Discharge: > 48 hours
Subjective/Interval History
-
Date of Service: December 07, 2024
No cp or sob. Alert. Afebrile
Objective Data
-
Labs:
Laboratory Results
12/07/24
06:55
WBC Pending
Hgb Pending
Hct Pending
Plt Count Pending
Sodium 141
Potassium 3.6
Chloride 110 H
Carbon Dioxide 27
BUN 17
Creatinine 1.1 H
Glucose 88
Calcium 9.1
Total Bilirubin 1.2 D
AST 22
ALT 18
Alkaline Phosphatase 102
Vital Signs:
Vital Signs
Temp Pulse Resp BP Pulse Ox
97.3 F 101 18 110/72 94
12/07/24 07:15 12/07/24 07:15 12/07/24 07:15 12/07/24 07:15 12/07/24 07:15
I&O
12/06/24 12/07/24 12/08/24
06:59 06:59 06:59
Intake Total 360 / 360 1440 / 1440
Balance 360 / 360 1440 / 1440
[2024-12-07 08:24] LABS: % Basophils 0.9 % (0-2); % Eosinophils 2.9 % (0-6); % Immature Granulocytes 0.3 % (0-0.5); % Lymphocytes 10.5 % (20.5-51.1); % Monocytes 12.3 % (1.7-9.3); % Neutrophils 73.1 % (42.2-75.2); Absolute Basophils 0.1 10^3/uL (0-0.2); Absolute Eosinophils 0.2 10^3/uL (0-0.7); Absolute Lymphocytes 0.7 10^3/uL (1.2-3.4); Absolute Monocytes 0.8 10^3/uL (0.1-0.6); Absolute Neutrophils 4.9 10^3/uL (1.4-6.5); Hematocrit 33.6 % (37.0-47.0); Hemoglobin 10.9 g/dL (12.0-16.0); Mean Corp Hgb Conc. 32.4 g/dL (33.0-37.0); Mean Corpuscular Hgb 30.5 pg (27.0-31.0); Mean Corpuscular Volume 94.1 fL (81.0-99.0); Mean Platelet Volume 11.2 fL (7.4-10.4); Nucleated Red Blood Cells % 0 %; Platelet Count 217 10^3/uL (130-400); Red Blood Cell Count 3.57 10^6/uL (4.20-5.40); Red Cell Dist. Width 17.3 % (11.5-14.5); White Blood Cell Count 6.6 10^3/uL (4.8-10.8)
--- NOTE | 2024-12-07 08:26 | PHA.VAN.FU ---
Vancomycin Assessment / Plan
- Assessment
Renal Function: Stable (1.1)
WBC's are: WNL (6.6)
In the past 24 hrs, patient has been: Afebrile
Concomitant Antimicrobials: Cefepime
- Dosing Plan
Continue: Vanco 1250mg Q24H
- Monitoring Plan
No level(s) ordered at this time: Consider in the next few days
- Follow Up
Pharmacy will continue to follow.
Vancomycin Follow UP
- -
Patient Age: 79
Patient Sex: Female
Vancomycin Day #: 3
Indication: Bacteremia
Requesting Provider: Dr. Lua
Pertinent Antimicrobial Allergies:
Penicillins Allergy (Verified 06/29/23 23:51)
Afib/RVR; tolerates cephalosporin
Height / Weight:
Height 5 ft 4 in
Actual Weight 112.899 kg
Pertinent Past Medical History: BMI ~41
- Vital Signs / Lab Results
Temp Pulse Resp BP Pulse Ox
97.3 F 101 18 110/72 94
12/07/24 07:15 12/07/24 07:15 12/07/24 07:15 12/07/24 07:15 12/07/24 07:15
Lab Results - Hematology
12/05/24 12/06/24 12/07/24
08:29 07:47 06:55
WBC 9.3 7.8 6.6
Lab Results - Chemistry
12/05/24 12/06/24 12/07/24
08:29 07:47 06:55
BUN 24 H 21 H 17
Creatinine 1.1 H 1.1 H 1.1 H
Estimated Creat Clear 48 49 50
Albumin 4.2 2.8 L
12/05/24
19:07
Lactic Acid 0.9
Lab Results - Urine
12/05/24
08:50
Urine Nitrite (Reflex) Positive A
Leukocyte Esterase Rfl Negative
Ur Squamous Epith Cells 6-10
Microbiology Results
12/05/24 08:50 Urine Culture - Preliminary
Urine Gram negative bacilli
12/05/24 14:51 Blood Culture - Preliminary
Blood/Venous No Growth in 24 hours- Final report to follow
12/05/24 08:50 Influenza Types A & B (RACHEL) - Final
Nasal Swab Negative for Influenza A & B, NAAT
Negative results must be combined with clinical observations
and patient history.
Nucleic Acid Amplification test (NAAT)performed on the
[employer] platform.
[2024-12-07 08:30] LABS: Cortisol, Random 8.4 ug/dl; TSH Reflex To Free T4 4.42 uIU/ml (0.47-4.68)
[2024-12-07] MEDS: ProAmatine 5 MG PO ×3 (08:30→17:41)
[2024-12-07] MEDS: MAXIPIME 1000 MG IV ×2 (08:31→15:59)
[2024-12-07] MEDS: STERILE WATER FOR INJECTION 10 ML IV ×2 (08:31→15:59)
[2024-12-07] MEDS: PACERONE 200 MG PO ×2 (08:32→21:35)
[2024-12-07] MEDS: LASIX 40 MG PO (08:32)
[2024-12-07] MEDS: MAG-TAB SR 84 MG PO (08:32)
[2024-12-07] MEDS: CARAFATE 1 GRAM PO ×2 (08:33→21:34)
[2024-12-07] MEDS: PROTONIX 40 MG PO (08:33)
[2024-12-07] MEDS: ALPHAGAN 0.2% EYE DROPS 2 DROP BOTH EYES (08:34)
[2024-12-07] MEDS: DESENEX/MITRAZOL/ZEASORB 1 APPLIC TOPICAL ×2 (08:34→21:35)
[2024-12-07] MEDS: HYDROPHOR 1 APPLIC TOPICAL (08:35)
[2024-12-07] MEDS: LOTRIMIN 1% CREAM 1 APPLIC TOPICAL ×2 (08:36→21:35)
--- NOTE | 2024-12-07 13:37 | W.PN.ID1 ---
Date of Service
Date of Service: December 07, 2024
Today's Communication
Continue current antibiotics.
Assessment / Plan
Reported visual hallucinations
Pyuria/bacteriuria; suspected complicated urinary tract infection
Reported PCN allergy
Elevated bilirubin
A-fib
Asthma
Dyslipidemia
Anxiety/depression
Arthritis
Recommendations:
Urine cultures with E. coli and Aerococcus spp.
Continue cefepime/vancomycin for the present.
Monitor white count and temperature curve.
Monitor creatinine clearance and Vanco levels while patient remains on vancomycin in order to prevent nephrotoxicity.
Monitor for return of hallucinations.
����������������������������������������������������������
Chief Complaint
-: UTI
Subjective / Review of Systems
Review of Systems: No Fever
Vital Signs / Physical Exam
Vital Signs
Vital Signs
Temp Pulse Resp BP Pulse Ox
97.4 F 108 20 120/80 95
12/07/24 11:10 12/07/24 13:00 12/07/24 11:10 12/07/24 13:00 12/07/24 11:10
Physical Exam
Constitutional: No Acute Distress, Comfortable, Chronically Ill and Non-toxic
Eyes: Sclera Anicteric
Cardiovascular: S1/S2; Negative S3/S4
Pulmonary: Non Labored; Negative Wheezes or Rhonchi
Gastrointestinal: Non Tender, Non Distended and Normal Bowel Sounds
Extremities: Edema; Negative Cyanosis
Skin: Rash (Bilateral inguinal intertrigo)
Objective Data
Lab Data
Lab Results
12/07/24 06:55
12/07/24 06:55
Estimated Creat Clear 50 ml/min 12/07/24 06:55
Lactic Acid 0.9 mmol/L (0.7-2.0) 12/05/24 19:07
Total Bilirubin 1.2 mg/dl (0.2-1.3) D 12/07/24 06:55
AST 22 U/L (14-36) 12/07/24 06:55
ALT 18 U/L (0-35) 12/07/24 06:55
Alkaline Phosphatase 102 U/L (38-126) 12/07/24 06:55
Most recent labs reviewed.
Micro Results:
12/05/24 08:50 Urine Culture - Final
Urine Escherichia coli
Aerococcus Species
12/05/24 16:46 MRSA Screen - Final
Nose Staph aureus MRSA
12/05/24 14:51 Blood Culture - Preliminary
Blood/Venous No Growth in 24 hours- Final report to follow
12/05/24 08:50 Influenza Types A & B (RACHEL) - Final
Nasal Swab Negative for Influenza A & B, NAAT
Negative results must be combined with clinical observations
and patient history.
Nucleic Acid Amplification test (NAAT)performed on the
[employer] platform.
Imaging:
12/05/2024 CT head without contrast: No acute intracranial abnormalities noted.
--- NOTE | 2024-12-07 13:54 | CON.CAR ---
Addendum entered and electronically signed by Jose Maria Fernández DO 12/07/24 16:33:
I saw and examined the patient.
The Burner Machine Operator's note was reviewed and I agree with the note.
Comment:
Plan:
Recurrent aFib, in setting of UTI. Increase amiodarone to 200 mg BID and continue with Pradaxa
Consider outpt cardioversion if she fails to convert on her own as she recovers from her UTI.
Reviewed that with amiodarone she would require yearly TSH checks and checking chest xray.
Check echo
Gentle IV diuresis.
Outpt cardiac follow up, they want to set up with a practice closer to her where she lives.
Son updated.
Original Note:
Consultation
Consultation Request
Date/Time Consultation Requested: 12/07/24
Date/Time Consultation Performed: 12/07/24
Requesting Provider: Dr. Rich
Performing Provider: Dr. Fernández
Reason for Consultation: Afib with RVR
Medical History
-
History of Present Illness:
Patient came to the ER on Friday with change in mental status and was admitted with UTI, cardiology is now consulted for A-fib with RVR. While in the room with the patient we called her son, Amanuel, and had him on speaker phone throughout our
consultation. Patient lives independently at [facility], she has a home health aide that comes 3 times a week to help with medication organization into pillboxes and to make sure that she is taking her medications and also to help with
showering, but otherwise she is independent with her ADLs including toileting. Patient was noted to have increasing lethargy for the week prior to admission and then change in mental status with confusion that prompted the ER visit on Friday.
Patient was admitted with sepsis and is being treated for a complicated UTI. Patient was noted to be in A-fib with RVR on admission and due to persistent A-fib with RVR cardiology is now consulted. Initially the patient and her son recalled the
diagnosis of A-fib, but cannot remember details. After my review of available [facility] records it appears that patient was admitted to [facility] in the setting of sepsis back in 05/2022 and at that time was diagnosed with A-fib and started on amiodarone
200 mg BID. Patient has remained on amiodarone 200 mg daily since then and the patient has never seen a inspector machine cut glass in the outpatient setting. Patient is also chronically on Pradaxa 75 mg BID, but CrCl is 50 and dose should be 150 mg BID. Patient
sees a PCP affiliated with [facility]. No palpitations.
PMH:
h/o paroxysmal Afib diagnosed at [facility] in the setting of sepsis approx 05/2022
Chronic Pradaxa OAC
Chronic amiodarone therapy
Chronic HF unknown EF
Hypothyroid
Lymphedema
Past Medical History
Past Medical History: Other (in HPI)
Past Surgical History: Appendectomy, , Orthopedic and Tonsilectomy
Social History
Tobacco: Non-Smoker
Alcohol: None
Drug: None
Living: Alone (independent living at [facility], home health aides 3 times a week to help with med organization and showering)
Family History
Family History: Reviewed & Not Pertinent
Allergies / Home Medications
Allergy/AdvReac Type Severity Reaction Status Date / Time
Penicillins Allergy Afib/RVR; Verified 06/29/23 23:51
tolerates
cephalosporin
�Medication �Instructions �Recorded �Confirmed �Type
amiodarone 200 mg tablet 200 mg PO DAILY Arrhythmia 06/06/22 12/05/24 History
dabigatran etexilate 75 mg capsule 75 mg PO Q12H Blood clot 06/06/22 12/05/24 History
(Pradaxa) prevention/tx
magnesium oxide 400 mg PO DAILY Supplement 06/06/22 12/05/24 History
pantoprazole 40 mg tablet,delayed 40 mg PO DAILY Gastrointestinal 06/06/22 12/05/24 History
release (Protonix) issue
sucralfate 1 gram tablet (Carafate) 1 g PO BID Gastrointestinal issue 06/06/22 12/05/24 History
mirtazapine 7.5 mg tablet 7.5 mg PO HS MENTAL HEALTH 01/16/23 12/05/24 History
sertraline 25 mg tablet 25 mg PO HS Mental Health/Anxiety 01/16/23 12/05/24 History
therapeutic multivitamin 1 tab PO DAILY Supplement 01/16/23 12/05/24 History
cholecalciferol (vitamin D3) 25 25 mcg PO DAILY Supplement 06/30/23 12/05/24 History
mcg (1,000 unit) tablet
furosemide 40 mg tablet 40 mg PO DAILY Fluid 06/30/23 12/05/24 History
Retention/Swelling
levothyroxine 25 mcg tablet 25 mcg PO DAILY AT 0700 Thyroid 06/30/23 12/05/24 History
nystatin 100,000 unit/gram topical 1 applic topical BID ANTIFUNGAL 06/30/23 12/05/24 History
powder (Nystop)
sennosides 8.6 mg tablet (senna) 8.6 mg PO BID Constipation 06/30/23 12/05/24 History
acetaminophen 500 mg tablet 1,000 mg PO BIDPRN PRN mild pain 12/05/24 12/05/24 History
alginate dressing 2' X 2' (Restore 1 ea topical MOWEFR BANDAGE 12/05/24 12/05/24 History
Calcium Alginate)
alprazolam 0.25 mg tablet (Xanax) 0.25 mg PO HS Mental Health/Anxiety 12/05/24 12/05/24 History
biotin 10,000 mcg chewable tablet 10,000 mcg PO DAILY Supplement 12/05/24 12/05/24 History
(Hair, Skin and Nails (biotin))
brimonidine 0.2 % eye drops 2 drp BOTH EYES DAILY Eye Condition 12/05/24 12/05/24 History
ceramides 1,3,6-II (CeraVe topical 1 applic topical DAILYPRN PRN dry 12/05/24 12/05/24 History
cream) skin
cyanocobalamin (vitamin B-12) 5,000 mcg sublingual DAILY 12/05/24 12/05/24 History
5,000 mcg sublingual tablet Supplement
(Vitamin B-12)
diphenhydramine HCl 25 mg tablet 1 mg PO Q6HPRN PRN itchiness 12/05/24 12/05/24 History
guaifenesin 600 mg tablet, 600 mg PO BIDPRN PRN cough 12/05/24 12/05/24 History
extended release 12 hr
loratadine 10 mg tablet 10 mg PO DAILY PRN allergies 12/05/24 12/05/24 History
loteprednol etabonate 0.38 % eye 1 drp BOTH EYES DAILY Eye Condition 12/05/24 12/05/24 History
gel drops (Lotemax SM)
sodium chloride 5 % eye drops 1 drp BOTH EYES DAILY Eye Condition 12/05/24 12/05/24 History
triamcinolone acetonide 0.1 % 1 applic topical BIDPRN PRN itching 12/05/24 12/05/24 History
lotion
white petrolatum 71.3 % topical 1 applic topical DAILYPRN PRN sores 12/05/24 12/05/24 History
ointment (Desitin Multi-Purpose)
Review of Systems
-
History Source: Patient and Family (son, Amanuel, by phone in the room on [facility])
All other systems: Negative unless noted
Physical Exam
Vital Signs
Temp Pulse Resp BP Pulse Ox
97.4 F 108 20 120/80 95
12/07/24 11:10 12/07/24 13:00 12/07/24 11:10 12/07/24 13:00 12/07/24 11:10
GEN: NAD, awake, alert and oriented to person, place and situation
HEENT: EOMI, MMM
LUNGS: RA. Dyspneic with conversation. No audible wheeze
CV: Afib on tele. Irreg irreg, S1/S2, no murmur
ABD: soft, BS+, NT, ND
EXT: +1 B/L LE edema. No lesions B/L
NEURO: Gross non-focal
SKIN: Warm, dry and pink. No rash
Lab Results
12/07/24 06:55
12/07/24 06:55
Lrq-[id number]-Ulpchjlppsa Pept 3970 pg/ml 12/05/24 08:29
Impression / Plan
-
PCP: Dr. Luis Fernando Abrams
Card: None prior to admission
Impression:
Admitted with change in mental status and UTI 12/07/24
Sepsis
Complicated UTI
TME
Persistent Afib with RVR
h/o paroxysmal Afib diagnosed at [facility] in the setting of sepsis approx 05/2022
Chronic Pradaxa OAC
Chronic amiodarone therapy
Suspected acute on chronic HF unknown EF
Hypothyroid
Lymphedema
Echo 12/30/2012: TDS, normal LV size and function, aortic sclerosis without stenosis, mildly dilated LA, SR at time of study
Plan:
-Patient came to the ER on Friday with change in mental status and was admitted with UTI, cardiology is now consulted for A-fib with RVR. While in the room with the patient we called her son, Amanuel, and had him on speaker phone throughout our
consultation. Patient lives independently at [facility], she has a home health aide that comes 3 times a week to help with medication organization into pillboxes and to make sure that she is taking her medications and also to help with
showering, but otherwise she is independent with her ADLs including toileting. Patient was noted to have increasing lethargy for the week prior to admission and then change in mental status with confusion that prompted the ER visit on Friday.
Patient was admitted with sepsis and is being treated for a complicated UTI. Patient was noted to be in A-fib with RVR on admission and due to persistent A-fib with RVR cardiology is now consulted. Initially the patient and her son recalled the
diagnosis of A-fib, but cannot remember details. After my review of available [facility] records it appears that patient was admitted to [facility] in the setting of sepsis back in 05/2022 and at that time was diagnosed with A-fib and started on amiodarone
200 mg BID. Patient has remained on amiodarone 200 mg daily since then and the patient has never seen a inspector machine cut glass in the outpatient setting. Patient is also chronically on Pradaxa 75 mg BID, but CrCl is 50 and dose should be 150 mg BID. Patient
sees a PCP affiliated with [facility]. No palpitations.
-ECG reviewed by me from 12/05/2024 is A-fib with RVR, ECG reviewed by me/03/25 is A-fib with RVR, no acute ischemic changes.
- Talked with patient and also her son, Amanuel, by speaker phone in the room throughout her consultation. The most likely scenario is that the patient is generally in SR, but has had a breakthrough of A-fib with RVR in the setting of sepsis and
complicated UTI. We made a short-term plan to increase her amiodarone to 200 mg TID in an attempt at controlling heart rate and if she spontaneously converts to SR then it can act as rhythm control as well. No plans for CV given sepsis and
complicated UTI.
-Reviewed with patient and her son that an appropriate outpatient long-term plan would be rhythm control with consideration for alternative AAD given newer diagnosis of hypothyroidism.
-Patient should follow-up with a inspector machine cut glass as an outpatient and her son is in agreement. I offered follow-up with our office, but her son is going to look into a inspector machine cut glass at her [facility] as transportation is an issue. Patient's
daughter that lives locally earlier this year and her son lives in [place].
-Patient should also have an eventual IRENE evaluation.
-Check ECG in a.m. to follow QTc with increased dose of amiodarone
-CrCl is 50 and correct dose of Pradaxa should be 150 mg BID, medication changes ordered by me.
-Patient was initially hypotensive, but BP has improved, will try adding Toprol XL 25 mg daily, ordered by me.
-proBNP 3970 and weight is up. Patient has received 3.5 L of IVF's this admission due to sepsis. IVF's are now off. Outpatient dose of Lasix 40 mg PO daily has been continued throughout admission. Will change to Lasix 40 mg IV daily starting
now, ordered by me.
-Check echo, ordered by me
[2024-12-07] MEDS: LOPRESSOR 5 MG IV (15:41)
[2024-12-07] MEDS: LASIX 40 MG IV (16:35)
--- NOTE | 2024-12-07 16:47 | CM ---
Patient seen at bedside with physicians. Patient plan is to return to apartment but therapy is recommending SNF; CM will call family to discuss options. CM will continue to follow for discharge planning needs.
Plan; SNF; [facility] vs alternative with bed availability,.
[2024-12-07] MEDS: TOPROL XL 25 MG PO (18:33)
[2024-12-07] MEDS: XANAX 0.25 MG PO (21:36)
[2024-12-07] MEDS: REFRESH CELLUVISC GEL 1 DROPS OPHTH (21:36)
[2024-12-07] MEDS: SENOKOT 17.2 MG PO (21:36)
[2024-12-08] VITALS (10 sets, daily range): BP systolic 102–117; BP diastolic 65–90; PULSE 118; O2SAT 93
[2024-12-08] MEDS: MAXIPIME 1000 MG IV ×2 (00:24→09:01)
[2024-12-08] MEDS: STERILE WATER FOR INJECTION 10 ML IV ×2 (00:25→09:00)
[2024-12-08] MEDS: VANCOCIN 275 MG IV (06:11)
[2024-12-08] MEDS: SYNTHROID 25 MCG PO (06:11)
[2024-12-08 07:31] LABS: % Basophils 0.9 % (0-2); % Eosinophils 3.3 % (0-6); % Immature Granulocytes 0.4 % (0-0.5); % Lymphocytes 9.9 % (20.5-51.1); % Monocytes 12.1 % (1.7-9.3); % Neutrophils 73.4 % (42.2-75.2); Absolute Basophils 0.1 10^3/uL (0-0.2); Absolute Eosinophils 0.2 10^3/uL (0-0.7); Absolute Lymphocytes 0.7 10^3/uL (1.2-3.4); Absolute Monocytes 0.9 10^3/uL (0.1-0.6); Absolute Neutrophils 5.4 10^3/uL (1.4-6.5); Hematocrit 33.5 % (37.0-47.0); Mean Corp Hgb Conc. 32.8 g/dL (33.0-37.0); Mean Corpuscular Hgb 30.2 pg (27.0-31.0); Mean Platelet Volume 10.6 fL (7.4-10.4); Nucleated Red Blood Cells % 0 %; Platelet Count 237 10^3/uL (130-400); Red Blood Cell Count 3.64 10^6/uL (4.20-5.40); White Blood Cell Count 7.4 10^3/uL (4.8-10.8)
[2024-12-08 07:53] LABS: Blood Urea Nitrogen 17 mg/dl (7-17); Calcium 9.2 mg/dl (8.4-10.2); Carbon Dioxide 28 mmol/L (22-30); Chloride 106 mmol/L (98-107); Estimated Creatinine Clearance 42 ml/min; Glucose 87 mg/dl (70-99); Sodium 140 mmol/L (135-145); eGFR 41.57
[2024-12-08 07:59] LABS: Potassium 3.1 mmol/L (3.5-5.1)
--- NOTE | 2024-12-08 08:27 | W.PN.HOSP.TC ---
Addendum entered and electronically signed by Aldo Rich MD 12/08/24 16:10:
Increase thyroid hormone doses to 50 mcg daily and recheck tsh in 4-6 wks (goal should be half of current values of 4.4 to around 2.5 or less)
Original Note:
Today's Communication/Plan
-
IV antibiotics. IV Lasix
Assessment / Plan
Assessment / Plan
Physical exam:
General: Acute on chronically ill
HEENT: Normocephalic, Atraumatic and Moist Mucous Membranes
Respiratory: Clear to Auscultation; Negative Wheezes, Rales or Rhonchi
Cardiac: Irregular rate and rhythm, and S1/S2
GI: Soft, Nontender and Nondistended
Skin: Extensive rash in bilateral groin and lower abdomen area. Venous stasis changes in both lower extremities as well.
Musculoskeletal: No Clubbing, No Cyanosis. Bilateral lower extremity edema
Neuro: Awake, Alert and Oriented, generalized weakness.
Psych: Calm
A/P:
Sepsis due to UTI:
Improving
On IV cefepime and vancomycin.
Urine culture with E. coli and Aerococcus
Positive MRSA screen
Follow-up cultures
Off IV fluids
ID consult appreciated
Discussed with son over the phone prior
Metabolic encephalopathy:
Improving
Continue to monitor mental status
Persistent versus recurrent paroxysmal A-fib with RVR:
Exacerbated by acute illness
Cardiology consulted
On antiarrhythmics, amiodarone 200 mg p.o. daily--> currently increased to 200 mg twice a day
On anticoagulation Pradaxa 75 mg twice a day--> cardiology increase to 150 mg twice a day
Not on rate control agents--> cardio started on metoprolol succinate 25 mg p.o. daily
Continue IV Lopressor as needed
Continue cardiac technologist
Hypokalemia:
Replete and trend
Check magnesium as well while on loop diuretics and hypokalemia
Acute on chronic diastolic CHF:
Off IV fluid
She was on oral diuretics--> cardiology switched her to furosemide 40 mg IV daily
Plan for echocardiogram
Monitor volume status closely
DES on CKD:
Creatinine 1.3 today probably due to diuresis
Baseline creatinine 1 on 2022
Hypothermia:
Improved
Check TSH and normal 4.42
Hypotension:
Chronic hypotension
Check cortisol level and not impressive at 8.4
Restarted midodrine schedule and slightly higher doses on 5 mg 3 times daily for now and then reevaluate.
Stopped IV fluids since 12/06.
Chronic lymphedema:
Wound care
Groin candidiasis:
Continue Desenex and clotrimazole
Anxiety:
Continue benzos as needed
Hypothyroidism:
Continue levothyroxine 25 mcg p.o. daily
Updated TSH in normal parameters
GERD:
Continue PPI and sucralfate
Obesity:
Lifestyle changes warranted
DVT prophylaxis:
On Pradaxa
CODE STATUS:
Full code
Total time spent on today's encounter was 52 minutes which included time spent in counseling the patient/family regarding diagnosis and treatment plan as listed above, goals of care, and symptom management. Case was discussed with nursing staff,
specialists, and care coordinators/case management. All labs and imaging personally reviewed by me. Remainder the time spent in detailed review of previous records, lab data, imaging, and other medical provider documentation.
Anticipated Discharge: > 48 hours
Subjective/Interval History
-
Date of Service: December 08, 2024
Patient denies chest pain abdominal pain nausea or vomiting today. Afebrile
Objective Data
-
Labs:
Laboratory Results
12/08/24
07:06
WBC 7.4
Hgb 11.0 L
Hct 33.5 L
Plt Count 237
Sodium 140
Potassium 3.1 L
Chloride 106
Carbon Dioxide 28
BUN 17
Creatinine 1.3 H
Glucose 87
Calcium 9.2
Vital Signs:
Vital Signs
Temp Pulse Resp BP Pulse Ox
98.1 F 112 18 102/70 94
12/08/24 07:16 12/08/24 07:16 12/08/24 07:16 12/08/24 07:16 12/08/24 07:16
I&O
12/07/24 12/08/24 12/09/24
06:59 06:59 06:59
Intake Total 1440 / 1440 1330 / 1330
Output Total 3450 / 3450
Balance 1440 / 1440 -2120 / -2120
--- NOTE | 2024-12-08 08:44 | PHA.VAN.FU ---
Vancomycin Assessment / Plan
- Assessment
Renal Function: SCR Increasing (1.1->1.3)
WBC's are: WNL (7.4)
In the past 24 hrs, patient has been: Afebrile
Concomitant Antimicrobials: Cefepime
- Dosing Plan
Continue: Vanco 1250mg Q24H
- Monitoring Plan
No level(s) ordered at this time: Consider in the next few days
- Follow Up
Pharmacy will continue to follow.
Vancomycin Follow UP
- -
Patient Age: 79
Patient Sex: Female
Vancomycin Day #: 4
Indication: Bacteremia
Requesting Provider: Le Pitts
Pertinent Antimicrobial Allergies:
Penicillins Allergy (Verified 06/29/23 23:51)
Afib/RVR; tolerates cephalosporin
Height / Weight:
Height 5 ft 4 in
Actual Weight 112.899 kg
Pertinent Past Medical History: BMI ~41
- Vital Signs / Lab Results
Temp Pulse Resp BP Pulse Ox
98.1 F 112 18 102/70 94
12/08/24 07:16 12/08/24 07:16 12/08/24 07:16 12/08/24 07:16 12/08/24 07:16
Lab Results - Hematology
12/06/24 12/07/24 12/08/24
07:47 06:55 07:06
WBC 7.8 6.6 7.4
Lab Results - Chemistry
12/05/24 12/06/24 12/07/24
08:29 07:47 06:55
BUN 24 H 21 H 17
Creatinine 1.1 H 1.1 H 1.1 H
Estimated Creat Clear 48 49 50
Albumin 4.2 2.8 L
12/08/24
07:06
BUN 17
Creatinine 1.3 H
Estimated Creat Clear 42
Albumin
12/05/24
19:07
Lactic Acid 0.9
Microbiology Results
12/05/24 14:51 Blood Culture - Preliminary
Blood/Venous No Growth in 48 hours- Final report to follow
12/05/24 08:50 Urine Culture - Final
Urine Escherichia coli
Aerococcus Species
12/05/24 16:46 MRSA Screen - Final
Nose Staph aureus MRSA
[2024-12-08] MEDS: KCL 40 MEQ PO ×2 (08:56→14:22)
[2024-12-08] MEDS: ProAmatine 5 MG PO ×3 (08:57→18:27)
[2024-12-08] MEDS: PROTONIX 40 MG PO (08:57)
[2024-12-08] MEDS: TOPROL XL 25 MG PO (08:58)
[2024-12-08] MEDS: MAG-TAB SR 84 MG PO (08:58)
[2024-12-08] MEDS: PACERONE 200 MG PO ×3 (08:58→21:37)
[2024-12-08] MEDS: CARAFATE 1 GRAM PO ×2 (08:58→19:54)
[2024-12-08] MEDS: LOTRIMIN 1% CREAM 1 APPLIC TOPICAL ×2 (08:59→19:57)
[2024-12-08] MEDS: LASIX 40 MG IV (08:59)
[2024-12-08] MEDS: DESENEX/MITRAZOL/ZEASORB 1 APPLIC TOPICAL ×2 (09:01→19:55)
[2024-12-08] MEDS: HYDROPHOR 1 APPLIC TOPICAL (09:02)
[2024-12-08] MEDS: ALPHAGAN 0.2% EYE DROPS 2 DROP BOTH EYES (09:03)
[2024-12-08] MEDS: PRADAXA 150 MG PO ×2 (09:09→19:54)
--- NOTE | 2024-12-08 14:34 | W.PN.ID1 ---
Date of Service
Date of Service: December 08, 2024
Today's Communication
Continue antibiotics. See below�
Assessment / Plan
Reported visual hallucinations
Pyuria/bacteriuria; suspected complicated urinary tract infection
Reported PCN allergy
Elevated bilirubin
A-fib
Asthma
Dyslipidemia
Anxiety/depression
Arthritis
Recommendations:
Urine cultures with E. coli and Aerococcus spp.
Transition to once daily ertapenem. Would complete a 10-day course of antibiotics (through 12/14/24)
����������������������������������������������������������
Chief Complaint
-: UTI
Subjective / Review of Systems
Patient seen and examined. Reports feeling improved. Reports no further hallucinations.
Review of Systems: No Fever and No Chills
Vital Signs / Physical Exam
Vital Signs
Vital Signs
Temp Pulse Resp BP Pulse Ox
97.7 F 117 16 105/65 97
12/08/24 11:37 12/08/24 14:23 12/08/24 11:37 12/08/24 14:24 12/08/24 11:37
Physical Exam
Constitutional: No Acute Distress, Comfortable, Chronically Ill and Non-toxic
Eyes: Sclera Anicteric
Cardiovascular: S1/S2; Negative S3/S4
Pulmonary: Non Labored; Negative Wheezes or Rhonchi
Gastrointestinal: Non Tender, Non Distended and Normal Bowel Sounds
Extremities: Edema; Negative Cyanosis
Skin: Rash (Bilateral inguinal intertrigo)
Neurological: Awake
Psychological: Calm
Objective Data
Lab Data
Lab Results
12/08/24 07:06
12/08/24 07:06
Estimated Creat Clear 42 ml/min 12/08/24 07:06
Lactic Acid 0.9 mmol/L (0.7-2.0) 12/05/24 19:07
Total Bilirubin 1.2 mg/dl (0.2-1.3) D 12/07/24 06:55
AST 22 U/L (14-36) 12/07/24 06:55
ALT 18 U/L (0-35) 12/07/24 06:55
Alkaline Phosphatase 102 U/L (38-126) 12/07/24 06:55
Most recent labs reviewed.
Micro Results:
12/05/24 14:51 Blood Culture - Preliminary
Blood/Venous No Growth in 48 hours- Final report to follow
12/05/24 08:50 Urine Culture - Final
Urine Escherichia coli
Aerococcus Species
12/05/24 16:46 MRSA Screen - Final
Nose Staph aureus MRSA
12/05/24 08:50 Influenza Types A & B (RACHEL) - Final
Nasal Swab Negative for Influenza A & B, NAAT
Negative results must be combined with clinical observations
and patient history.
Nucleic Acid Amplification test (NAAT)performed on the
[employer] platform.
Urine Culture Final 12/05/24
CC: Greater than 100,000 CFU/ML Escherichia coli
CC: Greater than 100,000 CFU/ML AEROCOCCUS SPECIES*
*No standardized antibiotic susceptibility testing is
available for Aerococcus species. Potentially active agents
include penicillins and vancomycin. Effectiveness of
cephalosporins is uncertain.
Organism 1 Escherichia coli
1. Escherichia coli
M.I.C. RX
--------- ---
Amoxicillin/Potas. Clavulanate <=8/4 S
Ampicillin >16 R
Ampicillin/Sulbactam >16/8 R
Aztreonam <=4 S
Cefazolin 16 R
Cefazolin interpretations for E. coli, K. pneumo and
P. mirabilis for uncomplicated uti are as follows:
<=16 Susceptible
> 16 Resistant
Cefepime <=2 S
Ceftazidime <=1 S
Ceftriaxone <=1 S
Ertapenem <=0.5 S
Ciprofloxacin >2 R
Gentamicin >8 R
Meropenem <=1 S
Nitrofurantoin-Urine Only <=32 S
Piperacillin/Tazobactam <=8 S
Tetracycline <=4 S
Tobramycin 4 S
Trimethoprim/Sulfamethoxazole <=2/38 S
Imaging:
12/05/2024 CT head without contrast: No acute intracranial abnormalities noted.
--- NOTE | 2024-12-08 14:44 | CM ---
Chart reviewed and transplant case manager spoke with patient and reviewed physical therapy notes, and recommendation is for skilled placement, skilled placement reviewed with patient and patient refuses skilled placement, plan is for patient to return to
[facility]
[phone] [phone]
--- NOTE | 2024-12-08 15:16 | W.PN.CARDCBS ---
Addendum entered and electronically signed by Jaskaran Mc MD 12/08/24 16:39:
I saw and examined the patient.
The Corner Block Cutter's note was reviewed and I agree with the note.
Comment: Briefly, 79-year-old woman past medical history of atrial fibrillation presenting with altered mental status found to have sepsis secondary to UTI and atrial fibrillation with rapid ventricular response
Heart rates remain elevated in atrial fibrillation
Agree with increasing amiodarone dose for better heart rate control and adding metoprolol
Would tentatively plan to uptitrate metoprolol for goal heart rate less than 110 bpm as blood pressure tolerates
Could consider direct-current cardioversion after sepsis resolves if rates remain uncontrolled
Chronically on Pradaxa for cardioembolic prophylaxis
Agree with gentle IV diuresis given history of heart failure with preserved ejection fraction
Monitor renal function closely
Rest per Lucy Sanchez
Original Note:
Today's Communication / Plan
-
Increase amiodarone to 200 mg TID
Cont Lasix 40 mg IV daily, if Cre increases again tomorrow then will hold Lasix
Impression / Plan
-
PCP: Dr. Luis Fernando Abrams
Card: None prior to admission
Impression:
Admitted with change in mental status and UTI 12/07/24
Sepsis
Complicated UTI
TME
Persistent Afib with RVR
h/o paroxysmal Afib diagnosed at [facility] in the setting of sepsis approx 05/2022
Chronic Pradaxa OAC
Chronic amiodarone therapy
Suspected acute on chronic HF unknown EF
Hypothyroid
Lymphedema
Echo 12/30/2012: TDS, normal LV size and function, aortic sclerosis without stenosis, mildly dilated LA, SR at time of study
Echo 12/08/2024: EF 50%, normal regional wall motion, mild concentric LVH, normal RV size and function, moderate to severe MR, mild to moderate peak/mean 27/13 mmHg and BERNABE 1.3 cm SQ
Plan:
-Tele reviewed by me and patient remains in Afib with rapid rates during activity. Will increase amiodarone to 200 mg TID
-Patient chronically on amiodarone 200 mg daily since at least 2021 when she was hospitalized at [facility], but has never seen a biomedical engineer as an outpatient. QTc 439 ms on ECG reviewed by me 12/08/24.
-Patient's son thinks hypothyroid is newer. TSH 4.42 on admission and outpatient dose of levothyroxine 25 mcg daily has been continued.
-Will continue with rate control efforts for now. Patient can be considered for rhythm control following hospitalization and may even spontaneously convert as her health improves.
-New to Toprol XL 25 mg daily this admission.
-Patient was not following with a biomedical engineer prior to admission and offered follow-up locally, but the patient lives at [facility] and the easiest/most convenient follow-up for her might be to follow-up with a biomedical engineer that keeps
hours at her facility. The patient's son was going to call [facility] and try to get the patient an appointment.
-CrCl is 42 on labs reviewed by me 12/08/24. Reviewed with pharmacy as well. Continue higher dose Pradaxa 150 mg BID, but watch for signs of bleeding due to concomitant use of amiodarone. Another option is to change from Pradaxa to Eliquis.
-Weight not checked 12/08/24, daily weights ordered by me now. Patient with evidence of acute HFpEF, proBNP 3970 and received 3.5 L of IVF's this admission due to sepsis. Cont Lasix 40 mg IV daily. Patient was taking Lasix 40 mg PO daily prior to
admission
-Cre increased to 1.3 on, labs reviewed by me. Follow-up with BMP in a.m. and if Cre continues to rise will hold Lasix.
-EF 50% on echo with mild to mod and mod to sev MR in the setting of volume overload
-Toprol XL as above
-Will not add CECELIA/ARB/ARNI/aldosterone antagonist due to increased creatinine with diuresis and hypotension
-Will not add SGLT2 due to UTI this admission
HPI: Patient came to the ER on Friday with change in mental status and was admitted with UTI, cardiology is now consulted for A-fib with RVR. While in the room with the patient we called her son, Amanuel, and had him on speaker phone throughout our
consultation. Patient lives independently at [facility], she has a home health aide that comes 3 times a week to help with medication organization into pillboxes and to make sure that she is taking her medications and also to help with
showering, but otherwise she is independent with her ADLs including toileting. Patient was noted to have increasing lethargy for the week prior to admission and then change in mental status with confusion that prompted the ER visit on Friday.
Patient was admitted with sepsis and is being treated for a complicated UTI. Patient was noted to be in A-fib with RVR on admission and due to persistent A-fib with RVR cardiology is now consulted. Initially the patient and her son recalled the
diagnosis of A-fib, but cannot remember details. After my review of available [facility] records it appears that patient was admitted to [facility] in the setting of sepsis back in 05/2022 and at that time was diagnosed with A-fib and started on amiodarone
200 mg BID. Patient has remained on amiodarone 200 mg daily since then and the patient has never seen a biomedical engineer in the outpatient setting. Patient is also chronically on Pradaxa 75 mg BID, but CrCl is 50 and dose should be 150 mg BID. Patient
sees a PCP affiliated with [facility]. No palpitations.
Progress Note - Barber Shop Operator
Subjective
Date of Service: December 08, 2024
She doesn't feel palpitations
Objective
Labs:
12/08/24 07:06
12/08/24 07:06
Labs
Hgb 11.0 g/dL (12.0-16.0) L 12/08/24 07:06
Hct 33.5 % (37.0-47.0) L 12/08/24 07:06
Plt Count 237 10^3/uL (130-400) 12/08/24 07:06
Sodium 140 mmol/L (135-145) 12/08/24 07:06
Potassium 3.1 mmol/L (3.5-5.1) L 12/08/24 07:06
BUN 17 mg/dl (7-17) 12/08/24 07:06
Creatinine 1.3 mg/dL (0.6-1.0) H 12/08/24 07:06
Glucose 87 mg/dl (70-99) 12/08/24 07:06
Vital Signs and I&O:
Vital Signs
Temp Pulse Resp BP Pulse Ox
97.7 F 117 16 105/65 97
12/08/24 11:37 12/08/24 14:23 12/08/24 11:37 12/08/24 14:24 12/08/24 11:37
Vital Signs
Temp Pulse Resp BP Pulse Ox
97.7 F 117 16 105/65 97
12/08/24 11:37 12/08/24 14:23 12/08/24 11:37 12/08/24 14:24 12/08/24 11:37
Intake & Output
12/06/24 12/07/24 12/08/24 12/09/24
06:59 06:59 06:59 06:59
Intake Total 360 / 360 1440 / 1440 1330 / 1330
Output Total 3450 / 3450
Balance 360 / 360 1440 / 1440 -2120 / -2120
Physical Exam
Physical Exam
GEN: NAD
LUNGS: RA.
CV: Afib on tele.
EXT: +1 B/L LE edema.
[2024-12-08] MEDS: INVANZ 60 MG IV (16:50)
[2024-12-08] MEDS: XANAX 0.25 MG PO (21:37)
[2024-12-08] MEDS: SENOKOT 17.2 MG PO (21:38)
[2024-12-08] MEDS: REFRESH CELLUVISC GEL 1 DROPS OPHTH (21:38)
[2024-12-09 03:02] VITALS: BP 106/72
[2024-12-09 05:20] VITALS: BMI 40.6
[2024-12-09] MEDS: SYNTHROID 50 MCG PO (05:23)
[2024-12-09 07:17] LABS: % Basophils 0.6 % (0-2); % Eosinophils 3.1 % (0-6); % Immature Granulocytes 0.3 % (0-0.5); % Lymphocytes 9.9 % (20.5-51.1); % Monocytes 11.7 % (1.7-9.3); % Neutrophils 74.4 % (42.2-75.2); Absolute Eosinophils 0.2 10^3/uL (0-0.7); Absolute Lymphocytes 0.7 10^3/uL (1.2-3.4); Absolute Monocytes 0.8 10^3/uL (0.1-0.6); Hematocrit 33.4 % (37.0-47.0); Hemoglobin 10.9 g/dL (12.0-16.0); Mean Corp Hgb Conc. 32.6 g/dL (33.0-37.0); Mean Corpuscular Hgb 29.9 pg (27.0-31.0); Mean Corpuscular Volume 91.8 fL (81.0-99.0); Nucleated Red Blood Cells % 0 %; Platelet Count 247 10^3/uL (130-400); Red Blood Cell Count 3.64 10^6/uL (4.20-5.40); Red Cell Dist. Width 16.9 % (11.5-14.5); White Blood Cell Count 6.7 10^3/uL (4.8-10.8)
[2024-12-09 07:18] VITALS: BP 102/66
[2024-12-09 07:58] LABS: Blood Urea Nitrogen 17 mg/dl (7-17); Calcium 9.2 mg/dl (8.4-10.2); Carbon Dioxide 29 mmol/L (22-30); Chloride 104 mmol/L (98-107); Estimated Creatinine Clearance 45 ml/min; Glucose 82 mg/dl (70-99); Magnesium 1.5 mg/dl (1.6-2.3); Potassium 3.8 mmol/L (3.5-5.1); Sodium 140 mmol/L (135-145); eGFR 45.76
--- NOTE | 2024-12-09 08:49 | W.PN.HOSP.TC ---
Today's Communication/Plan
-
IV antibiotics. IV Lasix.
Assessment / Plan
Assessment / Plan
Physical exam:
General: Acute on chronically ill
HEENT: Normocephalic, Atraumatic and Moist Mucous Membranes
Respiratory: Clear to Auscultation; Negative Wheezes, Rales or Rhonchi
Cardiac: Irregular rate and rhythm, and S1/S2
GI: Soft, Nontender and Nondistended
Skin: Extensive rash in bilateral groin and lower abdomen area. Venous stasis changes in both lower extremities as well.
Musculoskeletal: No Clubbing, No Cyanosis. Bilateral lower extremity edema
Neuro: Awake, Alert and Oriented, generalized weakness.
Psych: Calm
A/P:
Sepsis due to UTI:
Improving
On IV ertapenem
Urine culture with E. coli multidrug-resistant and Aerococcus
Positive MRSA screen
ID consult appreciated
Discussed with son over the phone prior
Metabolic encephalopathy:
Improving
Continue to monitor mental status
Persistent (likely) versus recurrent paroxysmal A-fib with RVR:
Exacerbated by acute illness
Cardiology consulted
On antiarrhythmics, amiodarone 200 mg p.o. daily--> currently increased by cardiology to 200 mg 3 times a day
On anticoagulation Pradaxa 75 mg twice a day--> cardiology increase to 150 mg twice a day
Not on rate control agents--> cardio started on metoprolol succinate 25 mg p.o. daily
Continue IV Lopressor as needed ordered by me
Continue scientific research associate
Hypokalemia:
Replete and trend
Hypomagnesemia:
Replete and trend
Acute on chronic diastolic CHF:
Off IV fluid
She was on oral diuretics--> cardiology switched her to furosemide 40 mg IV daily since 12/07
Reviewed echocardiogram
Monitor volume status closely
DES on CKD:
Creatinine 1.2 today
Baseline creatinine 1 on 2022
Hypothermia:
Improved
Check TSH and 4.42
Hypotension:
Chronic hypotension
Check cortisol level and not impressive at 8.4
Restarted midodrine schedule and slightly higher doses on 5 mg 3 times daily for now and then reevaluate.
Stopped IV fluids since 12/06.
Chronic lymphedema:
Wound care
Groin candidiasis:
Continue Desenex and clotrimazole
Anxiety:
Continue benzos as needed
Hypothyroidism:
Increased levothyroxine to 50 mcg p.o. daily
Updated TSH in it's over 4 and goal should be 2.5 or less
Repeat TFT in 4 to 6 weeks
GERD:
Continue PPI and sucralfate
Obesity:
Lifestyle changes warranted
DVT prophylaxis:
On Pradaxa
CODE STATUS:
Full code
Total time spent on today's encounter was 52 minutes which included time spent in counseling the patient/family regarding diagnosis and treatment plan as listed above, goals of care, and symptom management. Case was discussed with nursing staff,
specialists, and care coordinators/case management. All labs and imaging personally reviewed by me. Remainder the time spent in detailed review of previous records, lab data, imaging, and other medical provider documentation.
Anticipated Discharge: 24 - 48 hours
Subjective/Interval History
-
Date of Service: December 09, 2024
Patient denies chest pain or shortness of breath. Afebrile
Objective Data
-
Labs:
Laboratory Results
12/09/24
06:49
WBC 6.7
Hgb 10.9 L
Hct 33.4 L
Plt Count 247
Sodium 140
Potassium 3.8
Chloride 104
Carbon Dioxide 29
BUN 17
Creatinine 1.2 H
Glucose 82
Calcium 9.2
Vital Signs:
Vital Signs
Temp Pulse Resp BP Pulse Ox
97.6 F 115 16 102/66 94
12/09/24 07:18 12/09/24 07:18 12/09/24 07:18 12/09/24 07:18 12/09/24 07:18
I&O
12/08/24 12/09/24 12/10/24
06:59 06:59 06:59
Intake Total 1330 / 1330 1560 / 1560 240 / 240
Output Total 3450 / 3450 1700 / 1700 100 / 100
Balance -2120 / -2120 -140 / -140 140 / 140
[2024-12-09] MEDS: LASIX 40 MG IV ×2 (09:03→15:17)
[2024-12-09] MEDS: PROTONIX 40 MG PO (09:04)
[2024-12-09] MEDS: MAG-TAB SR 84 MG PO (09:04)
[2024-12-09] MEDS: CARAFATE 1 GRAM PO ×2 (09:04→20:43)
[2024-12-09] MEDS: PACERONE 200 MG PO ×3 (09:05→21:03)
[2024-12-09] MEDS: TOPROL XL 25 MG PO (09:05)
[2024-12-09] MEDS: ALPHAGAN 0.2% EYE DROPS 2 DROP BOTH EYES (09:05)
[2024-12-09] MEDS: ProAmatine 5 MG PO ×3 (09:05→17:25)
[2024-12-09] MEDS: PRADAXA 150 MG PO ×2 (09:05→20:43)
[2024-12-09] MEDS: DESENEX/MITRAZOL/ZEASORB 1 APPLIC TOPICAL ×2 (09:09→20:44)
[2024-12-09] MEDS: HYDROPHOR 1 APPLIC TOPICAL (09:10)
[2024-12-09] MEDS: LOTRIMIN 1% CREAM 1 APPLIC TOPICAL ×2 (09:10→20:44)
[2024-12-09 11:56] VITALS: BP 97/63
[2024-12-09] MEDS: MAGNESIUM SULFATE 50 IV (12:03)
--- NOTE | 2024-12-09 13:40 | W.PN.CARDCBS ---
Addendum entered and electronically signed by Jaskaran Mc MD 12/09/24 16:02:
I saw and examined the patient.
The Supervisor Finish End's note was reviewed and I agree with the note.
Comment: Briefly, 79-year-old woman past medical history of atrial fibrillation presenting with altered mental status found to have sepsis secondary to UTI and atrial fibrillation with rapid ventricular response
Heart rates remain elevated in atrial fibrillation
Continue amiodarone
Uptitrate metoprolol for better HR control, goal less than 110 bpm
Chronically on Pradaxa for cardioembolic prophylaxis
Agree with gentle IV diuresis given history of heart failure with preserved ejection fraction
Monitor renal function closely
Rest per Lucy Sanchez
Original Note:
Today's Communication / Plan
-
Cont Lasix 40 mg IV daily plus an extra dose this evening
Cont higher dose amiodarone
Cannot increase Toprol XL due to hypotension
Impression / Plan
-
PCP: Dr. Luis Fernando Abrams
Card: None prior to admission
Impression:
Admitted with change in mental status and UTI 12/07/24
Sepsis
Complicated UTI
TME
Persistent Afib with RVR
h/o paroxysmal Afib diagnosed at [facility] in the setting of sepsis approx 05/2022
Chronic Pradaxa OAC
Chronic amiodarone therapy
Acute on chronic HFpEF
Hypothyroid
Lymphedema
Echo 12/30/2012: TDS, normal LV size and function, aortic sclerosis without stenosis, mildly dilated LA, SR at time of study
Echo 12/08/2024: EF 50%, normal regional wall motion, mild concentric LVH, normal RV size and function, moderate to severe MR, mild to moderate peak/mean 27/13 mmHg and BERNABE 1.3 cm SQ
Plan:
-Tele reviewed by me 12/09/24 and remains in Afib with HRs 80-90s. Cont amiodarone to 200 mg TID while hospitalized, but decrease 200 mg BID for 1 month and then 200 mg daily upon d/c
-Patient chronically on amiodarone 200 mg daily since at least 2021 when she was hospitalized at [facility], but has never seen a fiber glass worker as an outpatient. QTc 439 ms on ECG reviewed by me 12/08/24.
-Patient's son thinks hypothyroidism is newer. TSH 4.42 on admission and outpatient dose of levothyroxine 25 mcg daily has been continued.
-Will continue with rate control efforts for now. Patient can be considered for rhythm control following hospitalization and may even spontaneously convert as her health improves.
-New to Toprol XL 25 mg daily this admission and BP 97/53 so will not increase dose
-CrCl is 45 on labs reviewed by me 12/09/24. Reviewed with pharmacy as well. Continue higher dose Pradaxa 150 mg BID, but watch for signs of bleeding due to concomitant use of amiodarone. Another option is to change from Pradaxa to Eliquis.
-Weight is down 12 lbs in the last 48 hours. I&O not recorded. Cre was 1.3 on 12/08/24, but a bit better at 1.2 on 12/09/24. Cont Lasix 40 mg IV daily plus an extra dose 12/09/24 evening. Patient was taking Lasix 40 mg PO daily prior to admission
-EF 50% on echo with mild to mod and mod to sev MR in the setting of volume overload. Patient received 3.5 L of IVF's this admission due to sepsis
-Toprol XL as above
-Will not add CECELIA/ARB/ARNI/aldosterone antagonist due to increased creatinine with diuresis and hypotension
-Will not add SGLT2 due to UTI this admission
-Patient was not following with a fiber glass worker prior to admission and offered follow-up locally, but the patient lives at [facility] and the easiest/most convenient follow-up for her might be to follow-up with a fiber glass worker that keeps
hours at her facility. The patient's son was going to call [facility] and try to get the patient an appointment. Recommendation for outpatient cardiology follow up placed on d/c instructions as a reminder to patient and son.
HPI: Patient came to the ER on Friday with change in mental status and was admitted with UTI, cardiology is now consulted for A-fib with RVR. While in the room with the patient we called her son, Amanuel, and had him on speaker phone throughout our
consultation. Patient lives independently at [facility], she has a home health aide that comes 3 times a week to help with medication organization into pillboxes and to make sure that she is taking her medications and also to help with
showering, but otherwise she is independent with her ADLs including toileting. Patient was noted to have increasing lethargy for the week prior to admission and then change in mental status with confusion that prompted the ER visit on Friday.
Patient was admitted with sepsis and is being treated for a complicated UTI. Patient was noted to be in A-fib with RVR on admission and due to persistent A-fib with RVR cardiology is now consulted. Initially the patient and her son recalled the
diagnosis of A-fib, but cannot remember details. After my review of available [facility] records it appears that patient was admitted to [facility] in the setting of sepsis back in 05/2022 and at that time was diagnosed with A-fib and started on amiodarone
200 mg BID. Patient has remained on amiodarone 200 mg daily since then and the patient has never seen a fiber glass worker in the outpatient setting. Patient is also chronically on Pradaxa 75 mg BID, but CrCl is 50 and dose should be 150 mg BID. Patient
sees a PCP affiliated with [facility]. No palpitations.
Progress Note - Automotive Finance Manager
Subjective
Date of Service: December 09, 2024
She says that she is too far from baseline to be d/c'd. Ongoing LE edema and fatigue.
Objective
Labs:
12/09/24 06:49
12/09/24 06:49
Labs
Hgb 10.9 g/dL (12.0-16.0) L 12/09/24 06:49
Hct 33.4 % (37.0-47.0) L 12/09/24 06:49
Plt Count 247 10^3/uL (130-400) 12/09/24 06:49
Sodium 140 mmol/L (135-145) 12/09/24 06:49
Potassium 3.8 mmol/L (3.5-5.1) 12/09/24 06:49
BUN 17 mg/dl (7-17) 12/09/24 06:49
Creatinine 1.2 mg/dL (0.6-1.0) H 12/09/24 06:49
Glucose 82 mg/dl (70-99) 12/09/24 06:49
Vital Signs and I&O:
Vital Signs
Temp Pulse Resp BP Pulse Ox
97.5 F 119 18 97/63 94
12/09/24 11:56 12/09/24 12:03 12/09/24 11:56 12/09/24 12:03 12/09/24 11:56
Vital Signs
Temp Pulse Resp BP Pulse Ox
97.5 F 119 18 97/63 94
12/09/24 11:56 12/09/24 12:03 12/09/24 11:56 12/09/24 12:03 12/09/24 11:56
Intake & Output
12/07/24 12/08/24 12/09/24 12/10/24
06:59 06:59 06:59 06:59
Intake Total 1440 / 1440 1330 / 1330 1560 / 1560 240 / 240
Output Total 3450 / 3450 1700 / 1700 100 / 100
Balance 1440 / 1440 -2120 / -2120 -140 / -140 140 / 140
Physical Exam
Physical Exam
GEN: NAD
LUNGS: RA. No audible wheeze
CV: Afib on tele.
EXT: +1 B/L LE edema.
--- NOTE | 2024-12-09 14:06 | W.PN.ID1 ---
Date of Service
Date of Service: December 09, 2024
Today's Communication
Continue ertapenem.
Assessment / Plan
Reported prior visual hallucinations
- imprlved
Pyuria/bacteriuria; suspected complicated urinary tract infection
Reported PCN allergy
Elevated bilirubin
A-fib
Asthma
Dyslipidemia
Anxiety/depression
Arthritis
Recommendations:
Urine cultures with E. coli and Aerococcus spp.
Continue ertapenem (d#2). Would complete a 10-day course of antibiotics (through 12/14/24).
Monitor white count and temperature curve. Creatinine stable.
����������������������������������������������������������
Chief Complaint
-: UTI
Subjective / Review of Systems
Review of Systems: No Fever and No Chills
Vital Signs / Physical Exam
Vital Signs
Vital Signs
Temp Pulse Resp BP Pulse Ox
97.5 F 119 18 97/63 94
12/09/24 11:56 12/09/24 12:03 12/09/24 11:56 12/09/24 12:03 12/09/24 11:56
Physical Exam
Constitutional: No Acute Distress, Comfortable, Chronically Ill and Non-toxic
Eyes: Sclera Anicteric
Cardiovascular: S1/S2; Negative S3/S4
Pulmonary: Non Labored
Gastrointestinal: Non Tender, Non Distended and Normal Bowel Sounds
Extremities: Edema; Negative Cyanosis
Skin: Rash (Bilateral inguinal intertrigo)
Neurological: Awake
Psychological: Calm
Objective Data
Lab Data
Lab Results
12/09/24 06:49
12/09/24 06:49
Estimated Creat Clear 45 ml/min 12/09/24 06:49
Lactic Acid 0.9 mmol/L (0.7-2.0) 12/05/24 19:07
Total Bilirubin 1.2 mg/dl (0.2-1.3) D 12/07/24 06:55
AST 22 U/L (14-36) 12/07/24 06:55
ALT 18 U/L (0-35) 12/07/24 06:55
Alkaline Phosphatase 102 U/L (38-126) 12/07/24 06:55
Most recent labs reviewed.
Micro Results:
12/05/24 14:51 Blood Culture - Preliminary
Blood/Venous No Growth in 72 hours- Final report to follow
12/05/24 08:50 Urine Culture - Final
Urine Escherichia coli
Aerococcus Species
12/05/24 16:46 MRSA Screen - Final
Nose Staph aureus MRSA
12/05/24 08:50 Influenza Types A & B (RACHEL) - Final
Nasal Swab Negative for Influenza A & B, NAAT
Negative results must be combined with clinical observations
and patient history.
Nucleic Acid Amplification test (NAAT)performed on the
[employer] platform.
Urine Culture Final 12/05/24
CC: Greater than 100,000 CFU/ML Escherichia coli
CC: Greater than 100,000 CFU/ML AEROCOCCUS SPECIES*
*No standardized antibiotic susceptibility testing is
available for Aerococcus species. Potentially active agents
include penicillins and vancomycin. Effectiveness of
cephalosporins is uncertain.
Organism 1 Escherichia coli
1. Escherichia coli
M.I.C. RX
--------- ---
Amoxicillin/Potas. Clavulanate <=8/4 S
Ampicillin >16 R
Ampicillin/Sulbactam >16/8 R
Aztreonam <=4 S
Cefazolin 16 R
Cefazolin interpretations for E. coli, K. pneumo and
P. mirabilis for uncomplicated uti are as follows:
<=16 Susceptible
> 16 Resistant
Cefepime <=2 S
Ceftazidime <=1 S
Ceftriaxone <=1 S
Ertapenem <=0.5 S
Ciprofloxacin >2 R
Gentamicin >8 R
Meropenem <=1 S
Nitrofurantoin-Urine Only <=32 S
Piperacillin/Tazobactam <=8 S
Tetracycline <=4 S
Tobramycin 4 S
Trimethoprim/Sulfamethoxazole <=2/38 S
Imaging:
12/05/2024 CT head without contrast: No acute intracranial abnormalities noted.
[2024-12-09] MEDS: INVANZ 60 MG IV (15:10)
[2024-12-09 15:28] VITALS: BP 94/62
[2024-12-09 19:17] VITALS: BP 112/77
[2024-12-09] MEDS: SENOKOT 17.2 MG PO (21:01)
[2024-12-09] MEDS: REFRESH CELLUVISC GEL 1 DROPS OPHTH (21:02)
[2024-12-09] MEDS: XANAX 0.25 MG PO (21:03)
[2024-12-09 23:25] VITALS: BP 109/72
[2024-12-10] VITALS (8 sets, daily range): BP systolic 103–117; BP diastolic 67–82; PULSE 110–122; O2SAT 94; BMI 39.3
[2024-12-10] MEDS: SYNTHROID 50 MCG PO (05:40)
[2024-12-10] MEDS: PROTONIX 40 MG PO (05:42)
[2024-12-10 07:39] LABS: % Basophils 0.8 % (0-2); % Eosinophils 3.6 % (0-6); % Immature Granulocytes 0.3 % (0-0.5); % Lymphocytes 9.7 % (20.5-51.1); % Monocytes 14.3 % (1.7-9.3); % Neutrophils 71.3 % (42.2-75.2); Absolute Basophils 0.1 10^3/uL (0-0.2); Absolute Eosinophils 0.2 10^3/uL (0-0.7); Absolute Lymphocytes 0.6 10^3/uL (1.2-3.4); Absolute Monocytes 0.9 10^3/uL (0.1-0.6); Absolute Neutrophils 4.5 10^3/uL (1.4-6.5); Hematocrit 33.3 % (37.0-47.0); Mean Corpuscular Volume 90.7 fL (81.0-99.0); Nucleated Red Blood Cells % 0 %; Platelet Count 255 10^3/uL (130-400); Red Blood Cell Count 3.67 10^6/uL (4.20-5.40); Red Cell Dist. Width 16.4 % (11.5-14.5); White Blood Cell Count 6.4 10^3/uL (4.8-10.8)
[2024-12-10 08:15] LABS: Blood Urea Nitrogen 18 mg/dl (7-17); Calcium 9.2 mg/dl (8.4-10.2); Carbon Dioxide 30 mmol/L (22-30); Chloride 101 mmol/L (98-107); Estimated Creatinine Clearance 41 ml/min; Glucose 84 mg/dl (70-99); Magnesium 1.9 mg/dl (1.6-2.3); Potassium 3.8 mmol/L (3.5-5.1); Sodium 139 mmol/L (135-145); eGFR 41.57
[2024-12-10] MEDS: MAG-TAB SR 84 MG PO (08:31)
[2024-12-10] MEDS: PRADAXA 150 MG PO ×2 (08:31→20:44)
[2024-12-10] MEDS: ProAmatine 5 MG PO ×3 (08:31→17:07)
[2024-12-10] MEDS: DESENEX/MITRAZOL/ZEASORB 1 APPLIC TOPICAL ×2 (08:32→20:45)
[2024-12-10] MEDS: LASIX 40 MG IV (08:32)
[2024-12-10] MEDS: CARAFATE 1 GRAM PO ×4 (08:32→21:07)
[2024-12-10] MEDS: PACERONE 200 MG PO ×3 (08:32→21:07)
[2024-12-10] MEDS: TOPROL XL 25 MG PO (08:32)
[2024-12-10] MEDS: HYDROPHOR 1 APPLIC TOPICAL (08:33)
[2024-12-10] MEDS: LOTRIMIN 1% CREAM 1 APPLIC TOPICAL ×2 (08:33→20:44)
[2024-12-10] MEDS: ALPHAGAN 0.2% EYE DROPS 2 DROP BOTH EYES (08:34)
--- NOTE | 2024-12-10 08:39 | W.PN.HOSP.TC ---
Today's Communication/Plan
-
IV antibiotics. IV Lasix. Amiodarone and metoprolol.
Assessment / Plan
Assessment / Plan
Physical exam:
General: Acute on chronically ill
HEENT: Normocephalic, Atraumatic and Moist Mucous Membranes
Respiratory: Clear to Auscultation; Negative Wheezes, Rales or Rhonchi
Cardiac: Irregular rate and rhythm, and S1/S2
GI: Soft, Nontender and Nondistended
Skin: Extensive rash in bilateral groin and lower abdomen area. Venous stasis changes in both lower extremities as well.
Musculoskeletal: No Clubbing, No Cyanosis. Bilateral lower extremity edema
Neuro: Awake, Alert and Oriented, generalized weakness.
Psych: Calm
A/P:
Sepsis due to UTI:
Improving
On IV ertapenem
Urine culture with E. coli multidrug-resistant and Aerococcus
Positive MRSA screen
ID consult appreciated
Discussed with son Ashish over the phone today on 12/10
Metabolic encephalopathy:
Improving
Continue to monitor mental status
Persistent (likely) versus recurrent paroxysmal A-fib with RVR:
Exacerbated by acute illness
Reviewed telemetry today and remains in A-fib but rates better controlled in the low 100s
Cardiology consult appreciated
On antiarrhythmics, amiodarone 200 mg p.o. daily--> currently increased by cardiology to 200 mg 3 times a day
On anticoagulation Pradaxa 75 mg twice a day--> cardiology increase to 150 mg twice a day
Not on rate control agents--> cardio started on metoprolol succinate 25 mg p.o. daily
Continue IV Lopressor as needed ordered by me
Continue monitor technician
Hypokalemia:
Replete and trend
Hypomagnesemia:
Replete and trend
Acute on chronic diastolic CHF:
Off IV fluid
She was on oral diuretics--> cardiology switched her to furosemide 40 mg IV daily since 12/07
Reviewed echocardiogram
Monitor volume status closely
DES on CKD:
Creatinine 1.3 today
Baseline creatinine 1 to 1.3
Hypothermia:
Improved
Checked TSH and 4.42
Hypotension:
Stable
Chronic hypotension
Checked cortisol level and not impressive at 8.4
Restarted midodrine schedule and slightly higher doses on 5 mg 3 times daily for now.
Stopped IV fluids since 12/06.
Chronic lymphedema:
Wound care
Groin candidiasis:
Continue Desenex and clotrimazole
Anxiety:
Continue benzos as needed
Hypothyroidism:
Increased levothyroxine to 50 mcg p.o. daily
Updated TSH in it's over 4 and goal should be 2.5 or less
Repeat TFT in 4 to 6 weeks
Anemia:
Continue to monitor hemoglobin
GERD:
Continue PPI and sucralfate. Increase sucralfate frequency today.
Obesity:
Lifestyle changes warranted
DVT prophylaxis:
On Pradaxa
CODE STATUS:
Full code
Total time spent on today's encounter was 52 minutes which included time spent in counseling the patient/family regarding diagnosis and treatment plan as listed above, goals of care, and symptom management. Case was discussed with nursing staff,
specialists, and care coordinators/case management. All labs and imaging personally reviewed by me. Remainder the time spent in detailed review of previous records, lab data, imaging, and other medical provider documentation.
Anticipated Discharge: > 48 hours
Subjective/Interval History
-
Date of Service: December 10, 2024
Alert and oriented. Complains of GERD symptoms. No chest pain or shortness of breath. Afebrile
Objective Data
-
Labs:
Laboratory Results
12/10/24
07:19
WBC 6.4
Hgb 11.0 L
Hct 33.3 L
Plt Count 255
Sodium 139
Potassium 3.8
Chloride 101
Carbon Dioxide 30
BUN 18 H
Creatinine 1.3 H
Glucose 84
Calcium 9.2
Vital Signs:
Vital Signs
Temp Pulse Resp BP Pulse Ox
98 F 112 17 117/76 97
12/10/24 07:13 12/10/24 08:32 12/10/24 07:13 12/10/24 08:32 12/10/24 07:13
I&O
12/09/24 12/10/24 12/11/24
06:59 06:59 06:59
Intake Total 1560 / 1560 1080 / 1080
Output Total 1700 / 1700 3150 / 3150
Balance -140 / -140 -2069 / -2069
--- NOTE | 2024-12-10 09:47 | W.PN.CARDCBS ---
Addendum entered and electronically signed by Jaskaran Mc MD 12/10/24 12:17:
I saw and examined the patient.
The Efficiency Engineer's note was reviewed and I agree with the note.
Comment: Briefly, 79-year-old woman past medical history of atrial fibrillation presenting with altered mental status found to have sepsis secondary to UTI and atrial fibrillation with rapid ventricular response
Heart rates remain elevated in atrial fibrillation
Continue amiodarone and metoprolol for HR goal less than 110 bpm
Blood pressure has been marginal here, currently on midodrine, which limits up titration of metoprolol
Chronically on Pradaxa for cardioembolic prophylaxis
Agree with gentle IV diuresis given history of heart failure with preserved ejection fraction
Creatinine remains stable
Hopefully can transition to oral in the next 24 to 48 hours
Rest per Francia Villarreal
Original Note:
Today's Communication / Plan
-
Continue diuresis w/ IV lasix 40mg daily
Continue amiodarone and Toprol for HR control
On Pradaxa 150mg BID for AC.
Consider rhythm control options at follow up
Impression / Plan
-
PCP: Dr. Luis Fernando Abrams
Furnace Repairer: None prior to admission, initially seen by Dr. Fernández
Impression:
Admitted with change in mental status and UTI 12/07/24
Sepsis
Complicated UTI
TME
Persistent Afib with RVR
h/o paroxysmal Afib diagnosed at [facility] in the setting of sepsis approx 05/2022
Chronic Pradaxa OAC
Chronic amiodarone therapy
Acute on chronic HFpEF
Hypothyroid
Lymphedema
Echo 12/30/2012: TDS, normal LV size and function, aortic sclerosis without stenosis, mildly dilated LA, SR at time of study
Echo 12/08/2024: EF 50%, normal regional wall motion, mild concentric LVH, normal RV size and function, moderate to severe MR, mild to moderate peak/mean 27/13 mmHg and BERNABE 1.3 cm SQ
Plan:
-Presented with change in mental status and admitted with UTI. Found to be in rapid afib, prompting cardiology evaluation.
-Remains in afib w/ HRs overall stable on tele. Continue amiodarone 200mg TID while hospitalized. Plan is to decrease to 200mg BID for 1 month at discharge, and then decrease to 200mg daily thereafter.
-New to Toprol 25mg daily this admission. BP stable.
-Continues on Pradaxa 150mg BID for anticoagulation.
-May consider rhythm control following hospitalization if she remains in afib at follow up.
-Continues to diurese with IV lasix 40mg daily. Additional dose given in PM 12/09.
-Weight down another 8lbs overnight if accurate, down to 228 lbs 12/10. Creat stable at 1.3.
-EF 50% with mild to moderate and moderate to severe MR in the setting of volume overload as above.
-No CECELIA/ARB/ARNI/aldosterone antagonist due to hypotension. Also avoiding SGLT2 inhibitor w/ UTI this admission.
-Continue levothyroxine.
-Continue abx per primary service/ID.
-Patient was not following with a university teacher prior to admission and offered follow-up locally, but the patient lives at [facility] and the easiest/most convenient follow-up for her might be to follow-up with a university teacher that keeps
hours at her facility. The patient's son was going to call [facility] and try to get the patient an appointment. Recommendation for outpatient cardiology follow up placed on d/c instructions as a reminder to patient and son.
HPI: Patient came to the ER on Friday with change in mental status and was admitted with UTI, cardiology is now consulted for A-fib with RVR. While in the room with the patient we called her son, Amanuel, and had him on speaker phone throughout our
consultation. Patient lives independently at [facility], she has a home health aide that comes 3 times a week to help with medication organization into pillboxes and to make sure that she is taking her medications and also to help with
showering, but otherwise she is independent with her ADLs including toileting. Patient was noted to have increasing lethargy for the week prior to admission and then change in mental status with confusion that prompted the ER visit on Friday.
Patient was admitted with sepsis and is being treated for a complicated UTI. Patient was noted to be in A-fib with RVR on admission and due to persistent A-fib with RVR cardiology is now consulted. Initially the patient and her son recalled the
diagnosis of A-fib, but cannot remember details. After my review of available [facility] records it appears that patient was admitted to [facility] in the setting of sepsis back in 05/2022 and at that time was diagnosed with A-fib and started on amiodarone
200 mg BID. Patient has remained on amiodarone 200 mg daily since then and the patient has never seen a university teacher in the outpatient setting. Patient is also chronically on Pradaxa 75 mg BID, but CrCl is 50 and dose should be 150 mg BID. Patient
sees a PCP affiliated with [facility]. No palpitations.
Progress Note - Furnace Repairer
Subjective
Date of Service: December 10, 2024
Feeling better today. Less SOB and notes improvement in her edema.
Objective
Labs:
12/10/24 07:19
12/10/24 07:19
Labs
Hgb 11.0 g/dL (12.0-16.0) L 12/10/24 07:19
Hct 33.3 % (37.0-47.0) L 12/10/24 07:19
Plt Count 255 10^3/uL (130-400) 12/10/24 07:19
Sodium 139 mmol/L (135-145) 12/10/24 07:19
Potassium 3.8 mmol/L (3.5-5.1) 12/10/24 07:19
BUN 18 mg/dl (7-17) H 12/10/24 07:19
Creatinine 1.3 mg/dL (0.6-1.0) H 12/10/24 07:19
Glucose 84 mg/dl (70-99) 12/10/24 07:19
Vital Signs and I&O:
Vital Signs
Temp Pulse Resp BP Pulse Ox
98 F 112 17 117/76 97
12/10/24 07:13 12/10/24 08:32 12/10/24 07:13 12/10/24 08:32 12/10/24 07:13
Vital Signs
Temp Pulse Resp BP Pulse Ox
98 F 112 17 117/76 97
12/10/24 07:13 12/10/24 08:32 12/10/24 07:13 12/10/24 08:32 12/10/24 07:13
Intake & Output
12/08/24 12/09/24 12/10/24 12/11/24
06:59 06:59 06:59 06:59
Intake Total 1330 / 1330 1560 / 1560 1080 / 1080
Output Total 3450 / 3450 1700 / 1700 3150 / 3150
Balance -0 / -2120 -140 / -140 -2069 / -2069
Physical Exam
Physical Exam
GEN: No distress, awake, alert, oriented x3
HEENT: supple, anicteric, mmm
LUNGS: CTA b/l, no wheezes
CV: irregularly irregular, 1/6 syst murmur
EXT: No clubbing or cyanosis, +1 edema b/l LE
NEURO: Gross non-focal
SKIN: Warm, dry
--- NOTE | 2024-12-10 12:05 | W.PN.ID1 ---
Date of Service
Date of Service: December 10, 2024
Today's Communication
Continue ertapenem x 10-day course of antibiotics (through 12/14/24).
Assessment / Plan
Reported prior visual hallucinations
- imprlved
Pyuria/bacteriuria; suspected complicated urinary tract infection
Reported PCN allergy
Elevated bilirubin
A-fib
Asthma
Dyslipidemia
Anxiety/depression
Arthritis
Recommendations:
Urine cultures with E. coli and Aerococcus spp.
Continue ertapenem x 10-day course of antibiotics (through 12/14/24).
Creatinine stable.
����������������������������������������������������������
Chief Complaint
-: UTI
Vital Signs / Physical Exam
Vital Signs
Vital Signs
Temp Pulse Resp BP Pulse Ox
98 F 120 17 107/73 96
12/10/24 10:54 12/10/24 10:54 12/10/24 10:54 12/10/24 10:54 12/10/24 10:54
Physical Exam
Constitutional: No Acute Distress, Comfortable, Chronically Ill and Non-toxic
Cardiovascular: Irregular Rate, S1/S2 and Other (tachycardic)
Gastrointestinal: Non Tender, Non Distended and Normal Bowel Sounds
Extremities: Edema
Skin: Rash (Bilateral inguinal intertrigo)
Neurological: Awake
Psychological: Calm
Objective Data
Lab Data
Lab Results
12/10/24 07:19
12/10/24 07:19
Estimated Creat Clear 41 ml/min 12/10/24 07:19
Lactic Acid 0.9 mmol/L (0.7-2.0) 12/05/24 19:07
Total Bilirubin 1.2 mg/dl (0.2-1.3) D 12/07/24 06:55
AST 22 U/L (14-36) 12/07/24 06:55
ALT 18 U/L (0-35) 12/07/24 06:55
Alkaline Phosphatase 102 U/L (38-126) 12/07/24 06:55
Most recent labs reviewed.
Micro Results:
12/05/24 14:51 Blood Culture - Preliminary
Blood/Venous No Growth in 4 days- Final report to follow
12/05/24 08:50 Urine Culture - Final
Urine Escherichia coli
Aerococcus Species
12/05/24 16:46 MRSA Screen - Final
Nose Staph aureus MRSA
12/05/24 08:50 Influenza Types A & B (RACHEL) - Final
Nasal Swab Negative for Influenza A & B, NAAT
Negative results must be combined with clinical observations
and patient history.
Nucleic Acid Amplification test (NAAT)performed on the
JAZIO platform.
Urine Culture Final 12/05/24
CC: Greater than 100,000 CFU/ML Escherichia coli
CC: Greater than 100,000 CFU/ML AEROCOCCUS SPECIES*
*No standardized antibiotic susceptibility testing is
available for Aerococcus species. Potentially active agents
include penicillins and vancomycin. Effectiveness of
cephalosporins is uncertain.
Organism 1 Escherichia coli
1. Escherichia coli
M.I.C. RX
--------- ---
Amoxicillin/Potas. Clavulanate <=8/4 S
Ampicillin >16 R
Ampicillin/Sulbactam >16/8 R
Aztreonam <=4 S
Cefazolin 16 R
Cefazolin interpretations for E. coli, K. pneumo and
P. mirabilis for uncomplicated uti are as follows:
<=16 Susceptible
> 16 Resistant
Cefepime <=2 S
Ceftazidime <=1 S
Ceftriaxone <=1 S
Ertapenem <=0.5 S
Ciprofloxacin >2 R
Gentamicin >8 R
Meropenem <=1 S
Nitrofurantoin-Urine Only <=32 S
Piperacillin/Tazobactam <=8 S
Tetracycline <=4 S
Tobramycin 4 S
Trimethoprim/Sulfamethoxazole <=2/38 S
Imaging:
12/05/2024 CT head without contrast: No acute intracranial abnormalities noted.
--- NOTE | 2024-12-10 13:15 | CM ---
Chart reviewed
Remains on IV antibiotics
PT recs SNF - Pt refusing snf - plan is for patient to return to [facility]
Plan - [facility]
[phone] Opt [address]
[2024-12-10] MEDS: INVANZ 60 MG IV (15:17)
--- NOTE | 2024-12-10 16:30 | PTCARENOTE ---
Patient OOB to chair for majority of AM, assist x2 RW with this RN and tech. Patient OOB to bathroom for BM. Bed bath provided prior to transfer to chair, B/L LE CECELIA wraps reapplied, desenex powder and antifungal creams applied to abd/groin folds
and buttocks. Patient tolerated sitting in chair, states no concerns at this time.
[2024-12-10] MEDS: SENOKOT 17.2 MG PO (21:07)
[2024-12-10] MEDS: REFRESH CELLUVISC GEL 1 DROPS OPHTH (21:07)
[2024-12-10] MEDS: XANAX 0.25 MG PO (21:08)
[2024-12-11 03:07] VITALS: BP 108/60
[2024-12-11] MEDS: SYNTHROID 50 MCG PO (05:36)
[2024-12-11 05:58] VITALS: BMI 38.0
[2024-12-11 07:20] VITALS: BP 113/71
[2024-12-11 08:03] LABS: Blood Urea Nitrogen 19 mg/dl (7-17); Calcium 9.2 mg/dl (8.4-10.2); Carbon Dioxide 35 mmol/L (22-30); Chloride 100 mmol/L (98-107); Estimated Creatinine Clearance 34 ml/min; Glucose 84 mg/dl (70-99); Potassium 3.4 mmol/L (3.5-5.1); Sodium 139 mmol/L (135-145); eGFR 35.01
--- NOTE | 2024-12-11 08:33 | W.PN.CARDCBS ---
Today's Communication / Plan
-
Stop IV Lasix and transition to oral Lasix at 40 mg daily
Replete potassium (40 laine ordered)
Rate improved, continue amiodarone
Impression / Plan
-
PCP: Dr. Luis Fernando Abrams
Traveling Auditor: None prior to admission, initially seen by Dr. Fernández
Impression:
Admitted with change in mental status and UTI 12/07/24
Sepsis
Complicated UTI
TME
Persistent Afib with RVR
h/o paroxysmal Afib diagnosed at [facility] in the setting of sepsis approx 05/2022
Chronic Pradaxa OAC
Chronic amiodarone therapy
Acute on chronic HFpEF
Hypothyroid
Lymphedema
Echo 12/30/2012: TDS, normal LV size and function, aortic sclerosis without stenosis, mildly dilated LA, SR at time of study
Echo 12/08/2024: EF 50%, normal regional wall motion, mild concentric LVH, normal RV size and function, moderate to severe MR, mild to moderate peak/mean 27/13 mmHg and BERNABE 1.3 cm SQ
Plan:
Presented with change in mental status and admitted with complicated UTI.
Found to be in rapid afib with rapid ventricular rates as well as decompensated heart failure with preserved ejection fraction, prompting cardiology evaluation.
- Remains in afib w/ HRs overall improved and stable on tele.
Continue amiodarone 200mg TID while hospitalized, then decrease to 200mg BID for 1 month at discharge, then decrease to 200mg daily thereafter.
Maintain Toprol 25mg daily (new this admission).
Continues on Pradaxa 150mg BID for anticoagulation.
Consideration for rhythm control options as an outpatient
- Improving heart failure with preserved ejection fraction
EF 50% with mild to moderate and moderate to severe MR in the setting of volume overload as above.
Weight is down 22 pounds from admission and down 7 lbs overnight (accuracy ?) and now with rising BUN/Creat
Stop IV Lasix and transition to oral Lasix at 40 mg daily
Replete potassium (40 laine ordered)
Basic metabolic profile and magnesium ordered for the morning
CECELIA/ARB/ARNI/aldosterone antagonist have been held related to relative hypotension and now DES.
Also avoiding SGLT2 inhibitor w/ UTI this admission.
-Continue levothyroxine.
-Continue abx per primary service/ID.
-Patient was not following with a plate straightener prior to admission and offered follow-up locally, but the patient lives at [facility] and the easiest/most convenient follow-up for her might be to follow-up with a plate straightener that keeps
hours at her facility. The patient's son was going to call [facility] and try to get the patient an appointment. Recommendation for outpatient cardiology follow up placed on d/c instructions as a reminder to patient and son.
Total time spent today was 51 minutes in preparing to see the patient, seeing the patient and coordination of care. This included review of recent laboratory evaluations, cardiact testing, imaging studies, primary care rtecords, specialty
consultations, hospital records, as well as personally interviewing and examining the patient, which included discussion of their tests, review/ordering medications, and communicating with other healthcare professionals and also treatment planning
as well as counseling.
HPI: Patient came to the ER on Friday with change in mental status and was admitted with UTI, cardiology is now consulted for A-fib with RVR. While in the room with the patient we called her son, Amanuel, and had him on speaker phone throughout our
consultation. Patient lives independently at [facility], she has a home health aide that comes 3 times a week to help with medication organization into pillboxes and to make sure that she is taking her medications and also to help with
showering, but otherwise she is independent with her ADLs including toileting. Patient was noted to have increasing lethargy for the week prior to admission and then change in mental status with confusion that prompted the ER visit on Friday.
Patient was admitted with sepsis and is being treated for a complicated UTI. Patient was noted to be in A-fib with RVR on admission and due to persistent A-fib with RVR cardiology is now consulted. Initially the patient and her son recalled the
diagnosis of A-fib, but cannot remember details. After my review of available [facility] records it appears that patient was admitted to [facility] in the setting of sepsis back in 05/2022 and at that time was diagnosed with A-fib and started on amiodarone
200 mg BID. Patient has remained on amiodarone 200 mg daily since then and the patient has never seen a plate straightener in the outpatient setting. Patient is also chronically on Pradaxa 75 mg BID, but CrCl is 50 and dose should be 150 mg BID. Patient
sees a PCP affiliated with [facility]. No palpitations.
Progress Note - Traveling Auditor
Subjective
Date of Service: December 11, 2024
He describes that he is breathing more easily. No chest pain
Objective
Labs:
12/10/24 07:19
12/11/24 06:44
Labs
Hgb 11.0 g/dL (12.0-16.0) L 12/10/24 07:19
Hct 33.3 % (37.0-47.0) L 12/10/24 07:19
Plt Count 255 10^3/uL (130-400) 12/10/24 07:19
Sodium 139 mmol/L (135-145) 12/11/24 06:44
Potassium 3.4 mmol/L (3.5-5.1) L 12/11/24 06:44
BUN 19 mg/dl (7-17) H 12/11/24 06:44
Creatinine 1.5 mg/dL (0.6-1.0) H 12/11/24 06:44
Glucose 84 mg/dl (70-99) 12/11/24 06:44
Vital Signs and I&O:
Vital Signs
Temp Pulse Resp BP Pulse Ox
97.4 F 110 16 113/71 93
12/11/24 07:20 12/11/24 07:20 12/11/24 07:20 12/11/24 07:20 12/11/24 07:20
Vital Signs
Temp Pulse Resp BP Pulse Ox
97.4 F 110 16 113/71 93
12/11/24 07:20 12/11/24 07:20 12/11/24 07:20 12/11/24 07:20 12/11/24 07:20
Intake & Output
12/09/24 12/10/24 12/11/24 12/12/24
06:59 06:59 06:59 06:59
Intake Total 1560 / 1560 1080 / 1080 1420 / 1420
Output Total 1700 / 1700 4050 / 4050 1350 / 1350
Balance -140 / -140 -2970 / -2970 70 / 70
Physical Exam
Physical Exam
GEN: No distress, awake, fatigued appearing, oriented x3
HEENT: supple, anicteric, mmm
LUNGS: CTA b/l, no wheezes
CV: irregularly irregular, 1/6 syst murmur
EXT: No clubbing or cyanosis, +1 edema b/l LE
NEURO: Gross non-focal
SKIN: Warm, dry
[2024-12-11] MEDS: PROTONIX 40 MG PO (08:43)
[2024-12-11] MEDS: CARAFATE 1 GRAM PO ×3 (08:43→21:10)
[2024-12-11] MEDS: PRADAXA 150 MG PO ×2 (08:43→20:11)
[2024-12-11] MEDS: TOPROL XL 25 MG PO (08:43)
[2024-12-11] MEDS: PACERONE 200 MG PO ×3 (08:44→21:11)
[2024-12-11] MEDS: MAG-TAB SR 84 MG PO (08:44)
[2024-12-11] MEDS: ProAmatine 5 MG PO (08:44)
[2024-12-11] MEDS: KCL 40 MEQ PO (08:52)
[2024-12-11] MEDS: DESENEX/MITRAZOL/ZEASORB 1 APPLIC TOPICAL ×2 (08:56→20:12)
[2024-12-11] MEDS: HYDROPHOR 1 APPLIC TOPICAL (08:56)
[2024-12-11] MEDS: LOTRIMIN 1% CREAM 1 APPLIC TOPICAL ×2 (08:57→20:12)
[2024-12-11] MEDS: ALPHAGAN 0.2% EYE DROPS 2 DROP BOTH EYES (08:57)
[2024-12-11] MEDS: LASIX IV (09:22)
[2024-12-11] MEDS: KCL PO (09:22)
--- NOTE | 2024-12-11 09:22 | W.PN.HOSP.TC ---
Addendum entered and electronically signed by Aldo Rich MD 12/11/24 13:46:
BP up-->decrease midodrine doses
Original Note:
Today's Communication/Plan
-
IV antibiotics. Diuretics.
Assessment / Plan
Assessment / Plan
Physical exam:
General: Acute on chronically ill
HEENT: Normocephalic, Atraumatic and Moist Mucous Membranes
Respiratory: Clear to Auscultation; Negative Wheezes, Rales or Rhonchi
Cardiac: Irregular rate and rhythm, and S1/S2
GI: Soft, Nontender and Nondistended
Skin: Extensive rash in bilateral groin and lower abdomen area. Venous stasis changes in both lower extremities as well.
Musculoskeletal: No Clubbing, No Cyanosis. Bilateral lower extremity edema
Neuro: Awake, Alert and Oriented, generalized weakness.
Psych: Calm
A/P:
Sepsis due to UTI:
Improving
On IV ertapenem
Urine culture with E. coli multidrug-resistant and Aerococcus
Positive MRSA screen
ID consult appreciated
Discussed with son Ashish yesterday
Metabolic encephalopathy:
Improving
Continue to monitor mental status
Persistent (likely) versus recurrent paroxysmal A-fib with RVR:
Exacerbated by acute illness
Reviewed telemetry today and remains in A-fib but rates better controlled in the low 100s
Cardiology consult appreciated
On antiarrhythmics, amiodarone 200 mg p.o. daily--> currently increased by cardiology to 200 mg 3 times a day
On anticoagulation Pradaxa 75 mg twice a day--> cardiology increase to 150 mg twice a day
Not on rate control agents--> cardio started on metoprolol succinate 25 mg p.o. daily
Continue IV Lopressor as needed ordered by me
Continue conveyor monitor
Hypokalemia:
Replete and trend
Hypomagnesemia:
Replete and trend
Acute on chronic diastolic CHF:
Off IV fluid
She was on oral diuretics--> cardiology switched her to furosemide 40 mg IV daily since 12/07 and will switch to oral on 12/12.
Reviewed echocardiogram
Monitor volume status closely
DES on CKD:
Creatinine 1.5 today
Baseline creatinine 1 to 1.3
Hypothermia:
Improved
Checked TSH and 4.42
Hypotension:
Stable
Chronic hypotension
Checked cortisol level and not impressive at 8.4
Restarted midodrine schedule and slightly higher doses on 5 mg 3 times daily for now.
Stopped IV fluids since 12/06.
Chronic lymphedema:
Wound care
Groin candidiasis:
Continue Desenex and clotrimazole
Anxiety:
Continue benzos as needed
Hypothyroidism:
Increased levothyroxine to 50 mcg p.o. daily
Updated TSH in it's over 4 and goal should be 2.5 or less
Repeat TFT in 4 to 6 weeks
Anemia:
Continue to monitor hemoglobin
GERD:
Continue PPI and sucralfate. Increase sucralfate frequency today.
Obesity:
Lifestyle changes warranted
DVT prophylaxis:
On Pradaxa
CODE STATUS:
Full code
Total time spent on today's encounter was 52 minutes which included time spent in counseling the patient/family regarding diagnosis and treatment plan as listed above, goals of care, and symptom management. Case was discussed with nursing staff,
specialists, and care coordinators/case management. All labs and imaging personally reviewed by me. Remainder the time spent in detailed review of previous records, lab data, imaging, and other medical provider documentation.
Anticipated Discharge: > 48 hours
Subjective/Interval History
-
Date of Service: December 11, 2024
Less shortness of breath. Afebrile
Objective Data
-
Labs:
Laboratory Results
12/11/24
06:44
Sodium 139
Potassium 3.4 L
Chloride 100
Carbon Dioxide 35 H
BUN 19 H
Creatinine 1.5 H
Glucose 84
Calcium 9.2
Vital Signs:
Vital Signs
Temp Pulse Resp BP Pulse Ox
97.4 F 110 16 113/71 93
12/11/24 07:20 12/11/24 08:43 12/11/24 07:20 12/11/24 08:44 12/11/24 07:20
I&O
12/10/24 12/11/24 12/12/24
06:59 06:59 06:59
Intake Total 1080 / 1080 1420 / 1420
Output Total 4050 / 4050 1350 / 1350
Balance -2970 / -2970 70 / 70
[2024-12-11 11:25] VITALS: BP 110/71
[2024-12-11] MEDS: CARAFATE PO (13:34)
[2024-12-11] MEDS: ProAmatine PO (13:44)
[2024-12-11 15:10] VITALS: BP 115/79
[2024-12-11] MEDS: INVANZ 60 MG IV (17:27)
[2024-12-11] MEDS: ProAmatine 2.5 MG PO (17:34)
[2024-12-11 19:21] VITALS: BP 102/66
[2024-12-11] MEDS: SENOKOT 17.2 MG PO (21:10)
[2024-12-11] MEDS: XANAX 0.25 MG PO (21:10)
[2024-12-11] MEDS: REFRESH CELLUVISC GEL 1 DROPS OPHTH (21:11)
[2024-12-11 23:25] VITALS: BP 102/69
[2024-12-12] VITALS (7 sets, daily range): BP systolic 98–130; BP diastolic 58–104; PULSE 105; BMI 37.7
[2024-12-12] MEDS: SYNTHROID 50 MCG PO (04:43)
[2024-12-12 06:51] LABS: Blood Urea Nitrogen 22 mg/dl (7-17); Calcium 9.5 mg/dl (8.4-10.2); Carbon Dioxide 31 mmol/L (22-30); Chloride 102 mmol/L (98-107); Estimated Creatinine Clearance 37 ml/min; Glucose 81 mg/dl (70-99); Potassium 4.2 mmol/L (3.5-5.1); Sodium 141 mmol/L (135-145); eGFR 38.03
--- NOTE | 2024-12-12 07:15 | W.PN.HOSP.TC ---
Today's Communication/Plan
-
IV antibiotics. Oral diuretics. Oral rate control and antiarrhythmic.
Assessment / Plan
Assessment / Plan
Physical exam:
General: Acute on chronically ill
HEENT: Normocephalic, Atraumatic and Moist Mucous Membranes
Respiratory: Clear to Auscultation; Negative Wheezes, Rales or Rhonchi
Cardiac: Irregular rate and rhythm, and S1/S2
GI: Soft, Nontender and Nondistended
Skin: Extensive rash in bilateral groin and lower abdomen area. Venous stasis changes in both lower extremities as well.
Musculoskeletal: No Clubbing, No Cyanosis. Bilateral lower extremity edema
Neuro: Awake, Alert and Oriented, generalized weakness.
Psych: Calm
A/P:
Sepsis due to UTI:
Improving
On IV ertapenem (ID recommends to complete 10 days through 12/14)
Urine culture with E. coli somewhat multidrug-resistant and Aerococcus
Positive MRSA screen
ID consult appreciated
Discussed with son Ashish yesterday
PT OT recommended SNF but patient wants to go back to [facility] with [facility]--> showcase trimmer to reevaluate for discharge disposition
Metabolic encephalopathy with hallucinations:
Improving
Continue to monitor mental status
Persistent (likely) versus recurrent paroxysmal A-fib with RVR:
Exacerbated by acute illness
Reviewed telemetry today and remains in A-fib but rates better controlled overall
Cardiology consult appreciated
On antiarrhythmics, amiodarone 200 mg 3 times a day
On anticoagulation Pradaxa 150 mg twice a day
On metoprolol succinate 25 mg p.o. daily
Continue IV Lopressor as needed
Continue horse shoer
Hypokalemia:
improved today
Replete and trend
Hypomagnesemia:
improved today
on oral mg replacement
Replete and trend
Acute on chronic diastolic CHF:
Off IV fluid
She was on oral diuretics--> cardiology switched her to furosemide 40 mg IV daily since 12/07 and switched to oral today on 12/12.
Reviewed echocardiogram
Monitor volume status closely
DES on CKD:
Creatinine 1.4 today
Baseline creatinine 1 to 1.3
Hypothermia:
Improved
Checked TSH and 4.42
Hypotension:
Stable
Chronic hypotension
Checked cortisol level and not impressive at 8.4
On midodrine 2.5 mg 3 times a day.
Stopped IV fluids since 12/06.
Chronic lymphedema:
Wound care
Groin candidiasis:
Continue Desenex and clotrimazole
Anxiety:
Continue benzos as needed
Hypothyroidism:
Increased levothyroxine to 50 mcg p.o. daily
Updated TSH in it's over 4 and goal should be 2.5 or less
Repeat TFT in 4 to 6 weeks
Anemia:
Continue to monitor hemoglobin
GERD:
Continue PPI and sucralfate. Increased sucralfate.
Obesity:
Lifestyle changes warranted
DVT prophylaxis:
On Pradaxa
CODE STATUS:
Full code
Total time spent on today's encounter was 52 minutes which included time spent in counseling the patient/family regarding diagnosis and treatment plan as listed above, goals of care, and symptom management. Case was discussed with nursing staff,
specialists, and care coordinators/case management. All labs and imaging personally reviewed by me. Remainder the time spent in detailed review of previous records, lab data, imaging, and other medical provider documentation.
Anticipated Discharge: > 48 hours
Subjective/Interval History
-
Date of Service: December 12, 2024
Patient denies chest pain or shortness of breath. Afebrile
Objective Data
-
Labs:
Laboratory Results
12/12/24
04:54
Sodium 141
Potassium 4.2
Chloride 102
Carbon Dioxide 31 H
BUN 22 H
Creatinine 1.4 H
Glucose 81
Calcium 9.5
Vital Signs:
Vital Signs
Temp Pulse Resp BP Pulse Ox
97.6 F 92 18 116/84 94
12/12/24 03:16 12/12/24 03:16 12/12/24 03:16 12/12/24 03:16 12/12/24 03:16
I&O
12/11/24 12/12/24 12/13/24
06:59 06:59 06:59
Intake Total 1420 / 1420 1400 / 1400
Output Total 1350 / 1350 1125 / 1125
Balance 70 / 70 275 / 275
[2024-12-12] MEDS: ALPHAGAN 0.2% EYE DROPS 2 DROP BOTH EYES (08:22)
[2024-12-12] MEDS: ProAmatine 2.5 MG PO ×3 (08:22→16:12)
[2024-12-12] MEDS: LASIX 40 MG PO (08:23)
[2024-12-12] MEDS: CARAFATE 1 GRAM PO ×4 (08:23→20:43)
[2024-12-12] MEDS: KCL 40 MEQ PO (08:23)
[2024-12-12] MEDS: MAG-TAB SR 84 MG PO (08:23)
[2024-12-12] MEDS: PROTONIX 40 MG PO (08:24)
[2024-12-12] MEDS: TOPROL XL PO (08:24)
[2024-12-12] MEDS: PRADAXA 150 MG PO ×2 (08:25→20:42)
[2024-12-12] MEDS: PACERONE 200 MG PO ×3 (08:25→22:43)
[2024-12-12] MEDS: DESENEX/MITRAZOL/ZEASORB 1 APPLIC TOPICAL ×2 (08:26→20:44)
[2024-12-12] MEDS: HYDROPHOR 1 APPLIC TOPICAL (08:26)
[2024-12-12] MEDS: LOTRIMIN 1% CREAM 1 APPLIC TOPICAL ×2 (08:27→20:44)
--- NOTE | 2024-12-12 11:12 | W.PN.CARDCBS ---
Today's Communication / Plan
-
Likely euvolemic. Would maintain Lasix 40 mg daily
Continue amiodarone as outlined in the note
Will need cardiac follow-up as an outpatient
patient lives at [facility] and the easiest/most convenient follow-up for her might be to follow-up with a production staff worker that keeps hours at her facility.
The patient's son was going to call [facility] and try to get the patient an appointment. Recommendation for outpatient cardiology follow up placed on d/c instructions as a reminder to patient and son.
Initial cardiology evaluation at this admission was with Dr mcintosh
Impression / Plan
-
PCP: Dr. Luis Fernando Abrams
Griddle Attendant: None prior to admission, initially seen by Dr. Mcintosh
Impression:
Admitted with change in mental status and UTI 12/07/24
Sepsis
Complicated UTI
TME
Persistent Afib with RVR
h/o paroxysmal Afib diagnosed at [facility] in the setting of sepsis approx 05/2022
Chronic Pradaxa OAC
Chronic amiodarone therapy
Acute on chronic HFpEF
Hypothyroid
Lymphedema
Echo 12/30/2012: TDS, normal LV size and function, aortic sclerosis without stenosis, mildly dilated LA, SR at time of study
Echo 12/08/2024: EF 50%, normal regional wall motion, mild concentric LVH, normal RV size and function, moderate to severe MR, mild to moderate peak/mean 27/13 mmHg and BERNABE 1.3 cm SQ
Plan:
Presented with change in mental status and admitted with complicated UTI.
Found to be in rapid afib with rapid ventricular rates as well as decompensated heart failure with preserved ejection fraction, prompting cardiology evaluation.
- Remains in afib w/ HRs overall improved and stable on tele.
Continue amiodarone 200mg TID while hospitalized, then decrease to 200mg BID for 1 month at discharge, then decrease to 200mg daily thereafter.
Maintain Toprol 25mg daily (new this admission).
Continues on Pradaxa 150mg BID for anticoagulation.
Consideration for rhythm control options as an outpatient
- Improving heart failure with preserved ejection fraction
EF 50% with mild to moderate and moderate to severe MR in the setting of volume overload as above.
Weight is down 24 pounds from admission and down 2 lbs overnight
With change from IV to oral Lasix (Lasix 40 mg PO daily) Creat is improved to 1.4, K 4.2, Mg 2
Maintain Lasix 40 mg orally
CECELIA/ARB/ARNI/aldosterone antagonist have been held related to relative hypotension and now DES.
Can consider resuming if blood pressure and renal function allows, either this admission or slowly add back as an outpatient
Also avoiding SGLT2 inhibitor w/ UTI this admission.
-Continue levothyroxine.
-Abx per primary service/ID.
-Patient was not following with a production staff worker prior to admission and offered follow-up locally, but the patient lives at [facility] and the easiest/most convenient follow-up for her might be to follow-up with a production staff worker that keeps
hours at her facility. The patient's son was going to call [facility] and try to get the patient an appointment. Recommendation for outpatient cardiology follow up placed on d/c instructions as a reminder to patient and son.
Not any much else from a cardiology standpoint, will sign off, please give us a call back if needed
Total time spent today was 50 minutes in preparing to see the patient, seeing the patient and coordination of care. This included review of recent laboratory evaluations, cardiact testing, imaging studies, primary care rtecords, specialty
consultations, hospital records, as well as personally interviewing and examining the patient, which included discussion of their tests, review/ordering medications, and communicating with other healthcare professionals and also treatment planning
as well as counseling.
HPI: Patient came to the ER on Friday with change in mental status and was admitted with UTI, cardiology is now consulted for A-fib with RVR. While in the room with the patient we called her son, Amanuel, and had him on speaker phone throughout our
consultation. Patient lives independently at [facility], she has a home health aide that comes 3 times a week to help with medication organization into pillboxes and to make sure that she is taking her medications and also to help with
showering, but otherwise she is independent with her ADLs including toileting. Patient was noted to have increasing lethargy for the week prior to admission and then change in mental status with confusion that prompted the ER visit on Friday.
Patient was admitted with sepsis and is being treated for a complicated UTI. Patient was noted to be in A-fib with RVR on admission and due to persistent A-fib with RVR cardiology is now consulted. Initially the patient and her son recalled the
diagnosis of A-fib, but cannot remember details. After my review of available [facility] records it appears that patient was admitted to [facility] in the setting of sepsis back in 05/2022 and at that time was diagnosed with A-fib and started on amiodarone
200 mg BID. Patient has remained on amiodarone 200 mg daily since then and the patient has never seen a production staff worker in the outpatient setting. Patient is also chronically on Pradaxa 75 mg BID, but CrCl is 50 and dose should be 150 mg BID. Patient
sees a PCP affiliated with [facility]. No palpitations.
Progress Note - Griddle Attendant
Subjective
Date of Service: December 12, 2024
She tells me she has no chest pain shortness of breath palpitations or dizziness.
Objective
Labs:
12/10/24 07:19
12/12/24 04:54
Labs
Hgb 11.0 g/dL (12.0-16.0) L 12/10/24 07:19
Hct 33.3 % (37.0-47.0) L 12/10/24 07:19
Plt Count 255 10^3/uL (130-400) 12/10/24 07:19
Sodium 141 mmol/L (135-145) 12/12/24 04:54
Potassium 4.2 mmol/L (3.5-5.1) 12/12/24 04:54
BUN 22 mg/dl (7-17) H 12/12/24 04:54
Creatinine 1.4 mg/dL (0.6-1.0) H 12/12/24 04:54
Glucose 81 mg/dl (70-99) 12/12/24 04:54
Vital Signs and I&O:
Vital Signs
Temp Pulse Resp BP Pulse Ox
97.0 F 109 18 98/58 98
12/12/24 07:15 12/12/24 08:24 12/12/24 07:15 12/12/24 08:24 12/12/24 07:15
Vital Signs
Temp Pulse Resp BP Pulse Ox
97.0 F 109 18 98/58 98
12/12/24 07:15 12/12/24 08:24 12/12/24 07:15 12/12/24 08:24 12/12/24 07:15
Intake & Output
12/10/24 12/11/24 12/12/24 12/13/24
06:59 06:59 06:59 06:59
Intake Total 1080 / 1080 1420 / 1420 1400 / 1400
Output Total 4050 / 4050 1350 / 1350 1125 / 1125
Balance -2970 / -2970 70 / 70 275 / 275
Physical Exam
Physical Exam
GEN: No distress, awake, fatigued appearing, oriented x3
HEENT: supple, anicteric, mmm
LUNGS: CTA b/l, no wheezes
CV: irregularly irregular, 1/6 syst murmur
EXT: No clubbing or cyanosis, +1 edema b/l LE
NEURO: Gross non-focal
SKIN: Warm, dry
[2024-12-12] MEDS: TUMS CHEWABLE TABLET 200 MG PO (12:20)
[2024-12-12] MEDS: INVANZ 60 MG IV (16:13)
[2024-12-12] MEDS: SENOKOT 17.2 MG PO (20:43)
[2024-12-12] MEDS: XANAX 0.25 MG PO (22:43)
[2024-12-12] MEDS: REFRESH CELLUVISC GEL 1 DROPS OPHTH (22:44)
[2024-12-13] VITALS (9 sets, daily range): BP systolic 92–118; BP diastolic 65–81; PULSE 95–101; O2SAT 94; BMI 37.4
[2024-12-13] MEDS: SYNTHROID 50 MCG PO (05:47)
[2024-12-13 07:37] LABS: Blood Urea Nitrogen 23 mg/dl (7-17); Calcium 9.4 mg/dl (8.4-10.2); Carbon Dioxide 28 mmol/L (22-30); Chloride 105 mmol/L (98-107); Estimated Creatinine Clearance 34 ml/min; Glucose 86 mg/dl (70-99); Potassium 4.1 mmol/L (3.5-5.1); Sodium 142 mmol/L (135-145); eGFR 35.01
--- NOTE | 2024-12-13 08:22 | W.PN.HOSP.TC ---
Today's Communication/Plan
-
dc
Assessment / Plan
Assessment / Plan
Physical exam:
General: Acute on chronically ill
HEENT: Normocephalic, Atraumatic and Moist Mucous Membranes
Respiratory: Clear to Auscultation; Negative Wheezes, Rales or Rhonchi
Cardiac: Irregular rate and rhythm, and S1/S2
GI: Soft, Nontender and Nondistended
Skin: Extensive rash in bilateral groin and lower abdomen area. Venous stasis changes in both lower extremities as well.
Musculoskeletal: No Clubbing, No Cyanosis. Bilateral lower extremity edema
Neuro: Awake, Alert and Oriented, generalized weakness.
Psych: Calm
A/P:
Sepsis due to UTI:
Resolved
On IV ertapenem (ID recommends to complete 10 days through 12/14)
Urine culture with E. coli somewhat multidrug-resistant and Aerococcus
Positive MRSA screen
ID consult appreciated
Discussed with son Ashish yesterday
PT OT recommended SNF but patient wants to go back to [facility]--> housing case manager to reevaluate for discharge disposition
Metabolic encephalopathy with hallucinations:
Improving
Continue to monitor mental status
Persistent (likely) versus recurrent paroxysmal A-fib with RVR:
Exacerbated by acute illness
Reviewed telemetry today and remains in A-fib but rates better controlled overall
Cardiology consult appreciated
On antiarrhythmics, amiodarone 200 mg 3 times a day
On anticoagulation Pradaxa 150 mg twice a day
On metoprolol succinate 25 mg p.o. daily
Continue IV Lopressor as needed
Continue cafeteria monitor
Hypokalemia:
resolved.
Hypomagnesemia:
improved today
on oral mg replacement
Replete and trend
Acute on chronic diastolic CHF:
Off IV fluid
She was on oral diuretics--> cardiology switched her to furosemide 40 mg IV daily since 12/07 and switched to oral today on 12/12.
Reviewed echocardiogram
Monitor volume status closely
DES on CKD:
Creatinine 1.4 today
Baseline creatinine 1 to 1.3
Hypothermia:
Improved
Checked TSH and 4.42
Hypotension:
Stable
Chronic hypotension
Checked cortisol level and not impressive at 8.4
On midodrine 2.5 mg 3 times a day.
Stopped IV fluids since 12/06.
Chronic lymphedema:
Wound care
Groin candidiasis:
Continue Desenex and clotrimazole
Anxiety:
Continue benzos as needed
Hypothyroidism:
Increased levothyroxine to 50 mcg p.o. daily
Updated TSH in it's over 4 and goal should be 2.5 or less
Repeat TFT in 4 to 6 weeks
Anemia:
Continue to monitor hemoglobin
GERD:
Continue PPI and sucralfate. Increased sucralfate.
Obesity:
Lifestyle changes warranted
DVT prophylaxis:
On Pradaxa
CODE STATUS:
Full code
Total time spent to see the patient, examine the patient, review data and lab results, discuss treatment plan with patient and nursing staff around 55 minutes
Anticipated Discharge: Today
Subjective/Interval History
-
Date of Service: December 13, 2024
Denies chest pain or sob
Objective Data
-
Labs:
Laboratory Results
12/13/24
05:43
Sodium 142
Potassium 4.1
Chloride 105
Carbon Dioxide 28
BUN 23 H
Creatinine 1.5 H
Glucose 86
Calcium 9.4
Vital Signs:
Vital Signs
Temp Pulse Resp BP Pulse Ox
97.5 F 105 16 115/76 94
12/13/24 07:18 12/13/24 07:18 12/13/24 07:18 12/13/24 07:18 12/13/24 07:18
I&O
12/12/24 12/13/24 12/14/24
06:59 06:59 06:59
Intake Total 1400 / 1400 840 / 840
Output Total 1125 / 1125 1800 / 1800
Balance 275 / 275 -960 / -960
[2024-12-13] MEDS: PROTONIX 40 MG PO (08:33)
[2024-12-13] MEDS: MAG-TAB SR 84 MG PO (08:33)
[2024-12-13] MEDS: PRADAXA 150 MG PO ×2 (08:33→21:09)
[2024-12-13] MEDS: KCL 40 MEQ PO (08:33)
[2024-12-13] MEDS: TOPROL XL 25 MG PO (08:33)
[2024-12-13] MEDS: ProAmatine 2.5 MG PO ×3 (08:33→16:58)
[2024-12-13] MEDS: LASIX 40 MG PO (08:33)
[2024-12-13] MEDS: CARAFATE 1 GRAM PO ×4 (08:35→21:10)
[2024-12-13] MEDS: DESENEX/MITRAZOL/ZEASORB 1 APPLIC TOPICAL ×2 (08:35→21:10)
[2024-12-13] MEDS: PACERONE 200 MG PO ×3 (08:35→21:09)
[2024-12-13] MEDS: ALPHAGAN 0.2% EYE DROPS 2 DROP BOTH EYES (08:35)
[2024-12-13] MEDS: LOTRIMIN 1% CREAM 1 APPLIC TOPICAL ×2 (08:36→21:10)
[2024-12-13] MEDS: HYDROPHOR 1 APPLIC TOPICAL (08:36)
--- NOTE | 2024-12-13 11:16 | W.PN.ID1 ---
Date of Service
Date of Service: December 13, 2024
Today's Communication
Continue current course of ertapenem.
Assessment / Plan
Reported prior visual hallucinations
- Resolved
Pyuria/bacteriuria; suspected complicated urinary tract infection
Reported PCN allergy
Elevated bilirubin
A-fib
Asthma
Dyslipidemia
Anxiety/depression
Arthritis
Recommendations:
Urine cultures with E. coli and Aerococcus spp.
Continue ertapenem x 10-day course of antibiotics (through 12/14/24).
Creatinine stable.
����������������������������������������������������������
Chief Complaint
-: UTI
Subjective / Review of Systems
Review of Systems: No Fever, No Chills and No Headache
Vital Signs / Physical Exam
Vital Signs
Vital Signs
Temp Pulse Resp BP Pulse Ox
97.5 F 105 16 115/76 94
12/13/24 07:18 12/13/24 07:18 12/13/24 07:18 12/13/24 07:18 12/13/24 07:18
Physical Exam
Constitutional: No Acute Distress, Comfortable, Chronically Ill and Non-toxic
Cardiovascular: Irregular Rate and S1/S2
Pulmonary: Clear and Non Labored
Gastrointestinal: Non Tender, Non Distended and Normal Bowel Sounds
Extremities: Edema
Neurological: Awake
Psychological: Calm
Objective Data
Lab Data
Lab Results
12/10/24 07:19
12/13/24 05:43
Estimated Creat Clear 34 ml/min 12/13/24 05:43
Lactic Acid 0.9 mmol/L (0.7-2.0) 12/05/24 19:07
Total Bilirubin 1.2 mg/dl (0.2-1.3) D 12/07/24 06:55
AST 22 U/L (14-36) 12/07/24 06:55
ALT 18 U/L (0-35) 12/07/24 06:55
Alkaline Phosphatase 102 U/L (38-126) 12/07/24 06:55
Most recent labs reviewed.
Micro Results:
12/05/24 14:51 Blood Culture - Final
Blood/Venous No Growth - Final Report
12/05/24 08:50 Urine Culture - Final
Urine Escherichia coli
Aerococcus Species
12/05/24 16:46 MRSA Screen - Final
Nose Staph aureus MRSA
12/05/24 08:50 Influenza Types A & B (RACHEL) - Final
Nasal Swab Negative for Influenza A & B, NAAT
Negative results must be combined with clinical observations
and patient history.
Nucleic Acid Amplification test (NAAT)performed on the
[employer] platform.
Urine Culture Final 12/05/24
CC: Greater than 100,000 CFU/ML Escherichia coli
CC: Greater than 100,000 CFU/ML AEROCOCCUS SPECIES*
*No standardized antibiotic susceptibility testing is
available for Aerococcus species. Potentially active agents
include penicillins and vancomycin. Effectiveness of
cephalosporins is uncertain.
Organism 1 Escherichia coli
1. Escherichia coli
M.I.C. RX
--------- ---
Amoxicillin/Potas. Clavulanate <=8/4 S
Ampicillin >16 R
Ampicillin/Sulbactam >16/8 R
Aztreonam <=4 S
Cefazolin 16 R
Cefazolin interpretations for E. coli, K. pneumo and
P. mirabilis for uncomplicated uti are as follows:
<=16 Susceptible
> 16 Resistant
Cefepime <=2 S
Ceftazidime <=1 S
Ceftriaxone <=1 S
Ertapenem <=0.5 S
Ciprofloxacin >2 R
Gentamicin >8 R
Meropenem <=1 S
Nitrofurantoin-Urine Only <=32 S
Piperacillin/Tazobactam <=8 S
Tetracycline <=4 S
Tobramycin 4 S
Trimethoprim/Sulfamethoxazole <=2/38 S
Imaging:
12/05/2024 CT head without contrast: No acute intracranial abnormalities noted.
--- NOTE | 2024-12-13 14:37 | CM ---
Addendum entered by Alexandra Quiñonez 12/13/24 16:00:
Rcd call from Keely, clinical director for [facility]
Referral reviewed - reports has concerns regarding pt needs and plans to contact director at [facility] regarding pts needs
Requesting pt not be discharged until additional services in place
Will update team
Original Note:
Chart reviewed; met with pt
PT/OT recs SNF - discussed with pt - declining SNF. Requested PT/OT services at [facility]
Spoke with pts son Ashish - updated of PT/OT recs, mother requesting home services. He acknowledged info given. Reports his mother's baseline is wheel chair bound, very little ambulation and has assistance from staff at [facility]. Reports
he will see his mother later in week
Spoke with Raquel with [facility] - will fax referral for [facility]
Will need transport home
Plan - Plan - [facility] with [facility]
Raquel/Keely [phone] Opt 2
[2024-12-13] MEDS: INVANZ 60 MG IV (16:57)
[2024-12-13] MEDS: REFRESH CELLUVISC GEL 1 DROPS OPHTH (21:09)
[2024-12-13] MEDS: SENOKOT 17.2 MG PO (21:09)
[2024-12-13] MEDS: XANAX 0.25 MG PO (21:09)
[2024-12-14 03:11] VITALS: BP 116/78
[2024-12-14] MEDS: SYNTHROID 50 MCG PO (05:39)
[2024-12-14 06:00] VITALS: BMI 37.1
[2024-12-14 07:15] VITALS: BP 108/74
[2024-12-14] MEDS: TOPROL XL 25 MG PO (08:19)
[2024-12-14] MEDS: MAG-TAB SR 84 MG PO (08:20)
[2024-12-14] MEDS: LASIX 40 MG PO (08:20)
[2024-12-14] MEDS: CARAFATE 1 GRAM PO ×4 (08:20→21:36)
[2024-12-14] MEDS: KCL 40 MEQ PO (08:20)
[2024-12-14] MEDS: ALPHAGAN 0.2% EYE DROPS 2 DROP BOTH EYES (08:20)
[2024-12-14] MEDS: ProAmatine 2.5 MG PO ×3 (08:20→17:06)
[2024-12-14] MEDS: PRADAXA 150 MG PO ×2 (08:20→20:08)
[2024-12-14] MEDS: PACERONE 200 MG PO ×2 (08:20→20:08)
[2024-12-14] MEDS: PROTONIX 40 MG PO (08:20)
[2024-12-14] MEDS: DESENEX/MITRAZOL/ZEASORB 1 APPLIC TOPICAL ×2 (08:23→20:10)
[2024-12-14] MEDS: HYDROPHOR 1 APPLIC TOPICAL (08:23)
[2024-12-14] MEDS: LOTRIMIN 1% CREAM 1 APPLIC TOPICAL ×2 (08:23→20:11)
--- NOTE | 2024-12-14 10:25 | W.PN.HOSP.TC ---
Today's Communication/Plan
-
dc
Assessment / Plan
Assessment / Plan
Physical exam:
General: Acute on chronically ill
HEENT: Normocephalic, Atraumatic and Moist Mucous Membranes
Respiratory: Clear to Auscultation; Negative Wheezes, Rales or Rhonchi
Cardiac: Irregular rate and rhythm, and S1/S2
GI: Soft, Nontender and Nondistended
Skin: Extensive rash in bilateral groin and lower abdomen area. Venous stasis changes in both lower extremities as well.
Musculoskeletal: No Clubbing, No Cyanosis. Bilateral lower extremity edema
Neuro: Awake, Alert and Oriented, generalized weakness.
Psych: Calm
A/P:
Sepsis due to UTI:
Resolved
IV ertapenem (ID recommended to complete 10 days through 12/14)
Urine culture with E. coli somewhat multidrug-resistant and Aerococcus
Positive MRSA screen
ID consult appreciated
Finished course of IV ertapenem 12/14.
Metabolic encephalopathy with hallucinations:
Improved, no hallucinations.
Persistent (likely) versus recurrent paroxysmal A-fib with RVR:
Exacerbated by acute illness
Reviewed telemetry today and remains in A-fib but rates better controlled overall
Cardiology consult appreciated
On antiarrhythmics, amiodarone 200 mg 3 times a day
On anticoagulation Pradaxa 150 mg twice a day
On metoprolol succinate 25 mg p.o. daily
Continue IV Lopressor as needed
Hypokalemia:
resolved.
Hypomagnesemia:
improved
on oral replacement
Acute on chronic diastolic CHF:
Off IV fluid
She was on oral diuretics--> cardiology switched her to furosemide 40 mg IV daily since 12/07 and switched to oral today on 12/12.
Reviewed echocardiogram
Monitor volume status closely
DES on CKD:
Creatinine 1.4 today
Baseline creatinine 1 to 1.3
Hypothermia:
Improved
Checked TSH and 4.42
Hypotension:
Stable
Chronic hypotension
Checked cortisol level and not impressive at 8.4
On midodrine 2.5 mg 3 times a day.
Stopped IV fluids since 12/06.
Chronic lymphedema:
Wound care
Groin candidiasis:
Continue Desenex and clotrimazole
Anxiety:
Continue benzos as needed
Hypothyroidism:
Increased levothyroxine to 50 mcg p.o. daily
Updated TSH in it's over 4 and goal should be 2.5 or less
Repeat TFT in 4 to 6 weeks
Anemia:
Continue to monitor hemoglobin
GERD:
Continue PPI and sucralfate. Increased sucralfate.
Obesity:
Lifestyle changes warranted
DVT prophylaxis:
On Pradaxa
CODE STATUS:
Full code
Total time spent to see the patient, examine the patient, review data and lab results, discuss treatment plan with patient and nursing staff around 55 minutes
Anticipated Discharge: Today
Subjective/Interval History
-
Date of Service: December 14, 2024
No chest pain
No sob
Objective Data
-
Vital Signs:
Vital Signs
Temp Pulse Resp BP Pulse Ox
97.4 F 98 18 108/74 93
12/14/24 07:15 12/14/24 07:15 12/14/24 07:15 12/14/24 07:15 12/14/24 07:15
I&O
12/13/24 12/14/24 12/15/24
06:59 06:59 06:59
Intake Total 840 / 840 880 / 880
Output Total 1800 / 1800 400 / 400
Balance -960 / -960 480 / 480
[2024-12-14] MEDS: INVANZ 60 MG IV (10:50)
[2024-12-14 11:00] VITALS: BP 113/74
--- NOTE | 2024-12-14 12:18 | CM ---
Rcd call from Evelyn at [facility] unable to provide care needed, requesting referral for SNF
Referral faxed to [phone]
Phone number for Evelyn - [phone], ext [phone]
Evelyn to review referral and call with determination
Plan - anticipate transfer to [facility] when bed obtained and medically ready
--- NOTE | 2024-12-14 13:29 | W.PN.ID1 ---
Date of Service
Date of Service: December 14, 2024
Today's Communication
Ertapenem completed. Observe off antibiotics
Assessment / Plan
Reported prior visual hallucinations
- Resolved
Pyuria/bacteriuria; suspected complicated urinary tract infection
Reported PCN allergy
Elevated bilirubin
A-fib
Asthma
Dyslipidemia
Anxiety/depression
Arthritis
Recommendations:
Urine cultures with E. coli and Aerococcus spp.
Patient completing a 10-day course of antibiotics today.
Creatinine stable.
����������������������������������������������������������
Chief Complaint
-: UTI
Subjective / Review of Systems
Review of Systems: No Fever, No Chills and No Dysuria
Vital Signs / Physical Exam
Vital Signs
Vital Signs
Temp Pulse Resp BP Pulse Ox
97.4 F 88 18 113/74 94
12/14/24 11:00 12/14/24 11:00 12/14/24 11:00 12/14/24 11:00 12/14/24 11:00
Physical Exam
Constitutional: No Acute Distress, Comfortable, Chronically Ill and Non-toxic
Cardiovascular: Irregular Rate and S1/S2
Pulmonary: Clear and Non Labored
Gastrointestinal: Non Tender, Non Distended and Normal Bowel Sounds
Extremities: Edema
Neurological: Awake
Psychological: Calm
Objective Data
Lab Data
Lab Results
12/10/24 07:19
12/13/24 05:43
Estimated Creat Clear 34 ml/min 12/13/24 05:43
Lactic Acid 0.9 mmol/L (0.7-2.0) 12/05/24 19:07
Total Bilirubin 1.2 mg/dl (0.2-1.3) D 12/07/24 06:55
AST 22 U/L (14-36) 12/07/24 06:55
ALT 18 U/L (0-35) 12/07/24 06:55
Alkaline Phosphatase 102 U/L (38-126) 12/07/24 06:55
Most recent labs reviewed.
Micro Results:
12/05/24 14:51 Blood Culture - Final
Blood/Venous No Growth - Final Report
12/05/24 08:50 Urine Culture - Final
Urine Escherichia coli
Aerococcus Species
12/05/24 16:46 MRSA Screen - Final
Nose Staph aureus MRSA
12/05/24 08:50 Influenza Types A & B (RACHEL) - Final
Nasal Swab Negative for Influenza A & B, NAAT
Negative results must be combined with clinical observations
and patient history.
Nucleic Acid Amplification test (NAAT)performed on the
[employer] platform.
Urine Culture Final 12/05/24
CC: Greater than 100,000 CFU/ML Escherichia coli
CC: Greater than 100,000 CFU/ML AEROCOCCUS SPECIES*
*No standardized antibiotic susceptibility testing is
available for Aerococcus species. Potentially active agents
include penicillins and vancomycin. Effectiveness of
cephalosporins is uncertain.
Organism 1 Escherichia coli
1. Escherichia coli
M.I.C. RX
--------- ---
Amoxicillin/Potas. Clavulanate <=8/4 S
Ampicillin >16 R
Ampicillin/Sulbactam >16/8 R
Aztreonam <=4 S
Cefazolin 16 R
Cefazolin interpretations for E. coli, K. pneumo and
P. mirabilis for uncomplicated uti are as follows:
<=16 Susceptible
> 16 Resistant
Cefepime <=2 S
Ceftazidime <=1 S
Ceftriaxone <=1 S
Ertapenem <=0.5 S
Ciprofloxacin >2 R
Gentamicin >8 R
Meropenem <=1 S
Nitrofurantoin-Urine Only <=32 S
Piperacillin/Tazobactam <=8 S
Tetracycline <=4 S
Tobramycin 4 S
Trimethoprim/Sulfamethoxazole <=2/38 S
Imaging:
12/05/2024 CT head without contrast: No acute intracranial abnormalities noted.
--- NOTE | 2024-12-14 14:27 | W.PN.UPDATE ---
Update Note
Progress Note Update
was asked to call patient's son, Ashish due to questions about his mother's care. called and updated Ashish on plan to continue rate/rhythm control with medication (amiodarone) in setting of acute complicated UTI. will arrange for OP cardiac follow up
(with us vs through her SNF) and at that time if she remains in afib can consider for CV. he was appreciative of phone call.
[2024-12-14 15:10] VITALS: BP 117/57
[2024-12-14 19:30] VITALS: BP 105/74
[2024-12-14] MEDS: XANAX 0.25 MG PO (21:36)
[2024-12-14] MEDS: REFRESH CELLUVISC GEL 1 DROPS OPHTH (21:36)
[2024-12-14] MEDS: SENOKOT 17.2 MG PO (21:36)
[2024-12-14] MEDS: TYLENOL 1000 MG PO (21:38)
[2024-12-14 23:45] VITALS: BP 94/64
[2024-12-15 00:16] VITALS: BP 91/58
[2024-12-15 03:21] VITALS: BP 97/74
[2024-12-15] MEDS: SYNTHROID 50 MCG PO (05:29)
[2024-12-15 05:34] VITALS: BMI 36.8
[2024-12-15 07:15] VITALS: BP 101/69
--- NOTE | 2024-12-15 07:22 | W.PN.ID1 ---
Date of Service
Date of Service: December 15, 2024
Today's Communication
Observe off abx.
Assessment / Plan
Prior visual hallucinations
- Resolved
Pyuria/bacteriuria; suspected complicated urinary tract infection
Reported PCN allergy
Elevated bilirubin
A-fib
Asthma
Dyslipidemia
Anxiety/depression
Arthritis
Recommendations:
Urine cultures with E. coli and Aerococcus spp.
Patient has completed a 10-day course of antibiotics.
Creatinine slightly up.
Observe off abx.
����������������������������������������������������������
Chief Complaint
-: UTI
Subjective / Review of Systems
No noted events overnight.
Review of Systems: No Fever
Vital Signs / Physical Exam
Vital Signs
Vital Signs
Temp Pulse Resp BP Pulse Ox
97.0 F 93 16 97/74 92
12/15/24 03:21 12/15/24 03:21 12/15/24 03:21 12/15/24 03:21 12/15/24 03:21
Physical Exam
Constitutional: No Acute Distress, Comfortable and Non-toxic
Cardiovascular: S1/S2; Negative S3/S4
Pulmonary: Non Labored
Gastrointestinal: Non Distended
Skin: Negative Rash or Jaundice
Neurological: Other (resting comfortably)
Objective Data
Lab Data
Lab Results
12/10/24 07:19
12/13/24 05:43
Estimated Creat Clear 34 ml/min 12/13/24 05:43
Lactic Acid 0.9 mmol/L (0.7-2.0) 12/05/24 19:07
Total Bilirubin 1.2 mg/dl (0.2-1.3) D 12/07/24 06:55
AST 22 U/L (14-36) 12/07/24 06:55
ALT 18 U/L (0-35) 12/07/24 06:55
Alkaline Phosphatase 102 U/L (38-126) 12/07/24 06:55
Most recent labs reviewed.
Micro Results:
12/05/24 14:51 Blood Culture - Final
Blood/Venous No Growth - Final Report
12/05/24 08:50 Urine Culture - Final
Urine Escherichia coli
Aerococcus Species
12/05/24 16:46 MRSA Screen - Final
Nose Staph aureus MRSA
12/05/24 08:50 Influenza Types A & B (RACHEL) - Final
Nasal Swab Negative for Influenza A & B, NAAT
Negative results must be combined with clinical observations
and patient history.
Nucleic Acid Amplification test (NAAT)performed on the
Figgu platform.
Urine Culture Final 12/05/24
CC: Greater than 100,000 CFU/ML Escherichia coli
CC: Greater than 100,000 CFU/ML AEROCOCCUS SPECIES*
*No standardized antibiotic susceptibility testing is
available for Aerococcus species. Potentially active agents
include penicillins and vancomycin. Effectiveness of
cephalosporins is uncertain.
Organism 1 Escherichia coli
1. Escherichia coli
M.I.C. RX
--------- ---
Amoxicillin/Potas. Clavulanate <=8/4 S
Ampicillin >16 R
Ampicillin/Sulbactam >16/8 R
Aztreonam <=4 S
Cefazolin 16 R
Cefazolin interpretations for E. coli, K. pneumo and
P. mirabilis for uncomplicated uti are as follows:
<=16 Susceptible
> 16 Resistant
Cefepime <=2 S
Ceftazidime <=1 S
Ceftriaxone <=1 S
Ertapenem <=0.5 S
Ciprofloxacin >2 R
Gentamicin >8 R
Meropenem <=1 S
Nitrofurantoin-Urine Only <=32 S
Piperacillin/Tazobactam <=8 S
Tetracycline <=4 S
Tobramycin 4 S
Trimethoprim/Sulfamethoxazole <=2/38 S
Imaging:
12/05/2024 CT head without contrast: No acute intracranial abnormalities noted.
[2024-12-15 08:14] VITALS: BP 101/69
--- NOTE | 2024-12-15 08:38 | W.PN.HOSP.TC ---
Today's Communication/Plan
-
dc
Assessment / Plan
Assessment / Plan
Physical exam:
General: Acute on chronically ill
HEENT: Normocephalic, Atraumatic and Moist Mucous Membranes
Respiratory: Clear to Auscultation; Negative Wheezes, Rales or Rhonchi
Cardiac: Irregular rate and rhythm, and S1/S2
GI: Soft, Nontender and Nondistended
Skin: Extensive rash in bilateral groin and lower abdomen area. Venous stasis changes in both lower extremities as well.
Musculoskeletal: No Clubbing, No Cyanosis. Bilateral lower extremity edema
Neuro: Awake, Alert and Oriented, generalized weakness.
Psych: Calm
A/P:
Sepsis due to UTI:
Resolved
IV ertapenem (ID recommended to complete 10 days through 12/14)
Urine culture with E. coli somewhat multidrug-resistant and Aerococcus
Positive MRSA screen
ID consult appreciated
Finished course of IV ertapenem 12/14.
Metabolic encephalopathy with hallucinations:
Improved, no hallucinations.
Persistent (likely) versus recurrent paroxysmal A-fib with RVR:
Exacerbated by acute illness
Reviewed telemetry today and remains in A-fib but rates better controlled overall
Cardiology consult appreciated
On antiarrhythmics, amiodarone 200 mg 3 times a day
On anticoagulation Pradaxa 150 mg twice a day
On metoprolol succinate 25 mg p.o. daily
Continue IV Lopressor as needed
Hypokalemia:
resolved.
Hypomagnesemia:
improved
on oral replacement
Acute on chronic diastolic CHF:
Off IV fluid
She was on oral diuretics--> cardiology switched her to furosemide 40 mg IV daily since 12/07 and switched to oral today on 12/12.
Reviewed echocardiogram
Monitor volume status closely
DES on CKD:
Creatinine 1.4 today
Baseline creatinine 1 to 1.3
Hypothermia:
Improved
Checked TSH and 4.42
Hypotension:
Stable
Chronic hypotension
Checked cortisol level and not impressive at 8.4
On midodrine 2.5 mg 3 times a day.
Stopped IV fluids since 12/06.
Chronic lymphedema:
Wound care
Groin candidiasis:
Continue Desenex and clotrimazole
Anxiety:
Continue benzos as needed
Hypothyroidism:
Increased levothyroxine to 50 mcg p.o. daily
Updated TSH in it's over 4 and goal should be 2.5 or less
Repeat TFT in 4 to 6 weeks
Anemia:
Continue to monitor hemoglobin
GERD:
Continue PPI and sucralfate. Increased sucralfate.
Obesity:
Lifestyle changes warranted
DVT prophylaxis:
On Pradaxa
CODE STATUS:
Full code
Total discharge time spent to see the patient, examine the patient, review data and lab results, discuss discharge plan with patient and nursing staff around 67 minutes
Anticipated Discharge: Today
Subjective/Interval History
-
Date of Service: December 15, 2024
No fever
no hypotension
Objective Data
-
Vital Signs:
Vital Signs
Temp Pulse Resp BP Pulse Ox
97.0 F 91 16 101/69 93
12/15/24 03:21 12/15/24 07:15 12/15/24 07:15 12/15/24 07:15 12/15/24 07:15
I&O
12/14/24 12/15/24 12/16/24
06:59 06:59 06:59
Intake Total 880 / 880 1931 / 193
Output Total 400 / 400 1350 / 1350
Balance 480 / 480 582 / 582
[2024-12-15] MEDS: MAG-TAB SR 84 MG PO (08:58)
[2024-12-15] MEDS: ProAmatine 2.5 MG PO ×2 (08:59→12:24)
[2024-12-15] MEDS: ALPHAGAN 0.2% EYE DROPS 2 DROP BOTH EYES (08:59)
[2024-12-15] MEDS: PROTONIX 40 MG PO (08:59)
[2024-12-15] MEDS: TOPROL XL 25 MG PO (08:59)
[2024-12-15] MEDS: KCL 40 MEQ PO (08:59)
[2024-12-15] MEDS: CARAFATE 1 GRAM PO ×2 (08:59→12:24)
[2024-12-15] MEDS: LASIX 40 MG PO (08:59)
[2024-12-15] MEDS: PACERONE 200 MG PO (08:59)
[2024-12-15] MEDS: PRADAXA 150 MG PO (08:59)
[2024-12-15] MEDS: HYDROPHOR 1 APPLIC TOPICAL (09:00)
[2024-12-15] MEDS: DESENEX/MITRAZOL/ZEASORB 1 APPLIC TOPICAL (09:00)
[2024-12-15] MEDS: LOTRIMIN 1% CREAM 1 APPLIC TOPICAL (09:01)
--- NOTE | 2024-12-15 10:23 | CM ---
Addendum entered by Alexandra Quiñonez 12/15/24 11:04:
Updated pt and her son Ashish
Reviewed IMM
Transport at 3PM - son and facility aware of time
Original Note:
Chart reviewed
Spoke with Evelyn from [facility] - can accept today after 3PM
[facility] notes faxed to Evelyn
Updated Dr Lua
Transport forms on chart
Plan - transfer to [facility]
R - [phone], ext [phone]
- [phone]
[2024-12-15 11:05] VITALS: BP 102/71
--- NOTE | 2024-12-15 11:08 | WOUNDNOTE ---
STEVEN RN NOTE: Followed up today with assist of nurse Clotilde. Air overlay in use, palm check done with adequate inflation. Patient turned with assist, skin on back, posterior thighs and buttocks improved, chronic discolored skin remains. Patient
complains that her bottom is sore despite using air overlay, applied Silicone foam to Sacrum. Heels are intact, foam adhesives changed. L leg wound has healed, R leg ulcer nearly healed, adaptic and silicone foam applied. Leg edema much improved.
Both legs moisturized with mineral oil and laura wraps knee high applied. Pillow placed under calves and patient repositioned in bed to eat breakfast. Patient for discharge later today to Rehab, nurse Zay updated on the above.
--- NOTE | 2024-12-15 11:09 | WOUNDNOTE ---
RIGHT LOWER POSTERIOR LEG
--- NOTE | 2024-12-15 13:06 | W.DCSUMMARY ---
Discharge Summary
Discharge Data
Date of Admission: 12/05/24
Date of Discharge: 12/15/24
-
Pending Results: No
Hospital Course
79 years old female was admitted with weakness and visual hallucination. She met the criteria of sepsis. She was found to have urinary tract infection with toxic metabolic encephalopathy. Patient received intravenous antibiotic. She was followed
by infectious diseases residential solar consultant. She finished the course of intravenous ertapenem in the hospital. Mentation went back to normal. Patient developed persistent atrial fibrillation. She was evaluated by professor of education. She had mild acute on
chronic diastolic heart failure. Academic Records Specialist adjusted her medication. Patient started to improve. She was evaluated [facility]. She remained hemodynamically stable and was discharged in a stable
condition.
Discharge Plan
-
Patient Disposition: Longterm/SNF
Discharge Diagnosis/Procedures: -Acute complicated urinary tract infection, finished treatment.
-Persistent Afib with RVR, adjusted amiodarone dose, added Toprol. Increased Pradaxa dose
-Acute on chronic HFpEF, c/w Lasix, potassium supplement.
-Hypothyroidism, increased synthroid dose, TSH in 4 weeks.
Diet: 2 Gram Sodium and Restrict fluids to 64 oz
Blood Work: BMP & CBC in one week. TSH in 4 weeks.
Specialty Instructions: Weigh Daily- Call MD for wt gain/loss 3 lbs overnight/5 lbs in 1 week
Activity Restrictions/Additional Instructions:
Wound Care Instructions
legs: clean with soap and water, mineral oil to legs and feet daily
R leg blister: apply adaptic and dry dressing change q other day and prn drainage.
Zeyad wraps or own compression stockings, knee high daily can remove at bedtime
leg elevation when sitting
Back: clean with soap and water apply Clotrimazole as directed.
Breast/abdomen/groin skin folds, posterior thigh and buttocks: clean with soap and water, dusting of fungal powder after bathing and drying skin folds. Can apply folded cotton pillow case or cotton T shirt in skin folds PRN moisture daily.
Bariatric air cushion when sitting
Referrals:
Luis Fernando Abrams MD [Family Provider] -
Francia Villarreal PA-C [Specified Professional Personl] - 01/06/25 2:40 pm (You have a cardiology follow-up appointment at the [place] office. Please call with questions. If you end up establishing care with professor of education through your rehab
facility, please call to cancel this appointment)
Additional Discharge Medication Instructions: -Take amiodarone 200 mg twice a day for 1 month (until 01/09/25) and then decrease to 200 mg daily thereafter
-Your dose of Pradaxa (dabigatran) was increased to 150 mg twice a day. Pradaxa thins the blood to reduce risk of stroke due to atrial fibrillation.
Prescriptions:
New
amiodarone 200 mg Tablet
200 mg PO BID Qty: 60 0RF
potassium chloride 20 mEq Tablet,Er Particles/Crystals
40 meq PO DAILY Qty: 30 0RF
levothyroxine 50 mcg Tablet
50 mcg PO DAILY@0600 Qty: 30 0RF
dabigatran etexilate [Pradaxa] 150 mg Capsule
150 mg PO BID Qty: 60 0RF
sennosides [Philly-lamin] 8.6 mg Tablet
17.2 mg PO HS Qty: 60 0RF
midodrine 2.5 mg Tablet
2.5 mg PO TID@0800,1300,1800 Qty: 90 0RF
metoprolol succinate 25 mg Tablet Extended Release 24 Hr
25 mg PO DAILY Qty: 30 0RF
Continued
sucralfate [Carafate] 1 gram Tablet
1 g PO BID
pantoprazole [Protonix] 40 mg Tablet,Delayed Release (Dr/Ec)
40 mg PO DAILY
magnesium oxide 400 mg magnesium Tablet
400 mg PO DAILY
therapeutic multivitamin Tablet
1 tab PO DAILY
sertraline 25 mg Tablet
25 mg PO HS
mirtazapine 7.5 mg Tablet
7.5 mg PO HS
furosemide 40 mg Tablet
40 mg PO DAILY
nystatin [Nystop] 100,000 unit/gram Powder
1 applic TOPICAL BID
cholecalciferol (vitamin D3) 25 mcg (1,000 unit) Tablet
25 mcg PO DAILY
sodium chloride 5 % Drops
1 drp BOTH EYES DAILY
acetaminophen 500 mg Tablet
1,000 mg PO BIDPRN PRN (Reason: mild pain)
diphenhydramine HCl 25 mg Tablet
1 mg PO Q6HPRN PRN (Reason: itchiness)
Rx Instructions:
intermediate instructions say 'one Milligram q6h prn po'
brimonidine 0.2 % Drops
2 drp BOTH EYES DAILY
triamcinolone acetonide 0.1 % Lotion
1 applic TOPICAL BIDPRN PRN (Reason: itching)
Rx Instructions:
apply to back pruritus site up to 2xday as needed for itchiness
loratadine 10 mg Tablet
10 mg PO DAILY PRN (Reason: allergies)
ceramides 1,3,6-II [CeraVe] Cream
1 applic TOPICAL DAILYPRN PRN (Reason: dry skin)
Rx Instructions:
extremities
cyanocobalamin (vitamin B-12) [Vitamin B-12] 5,000 mcg Tablet, Sublingual
5,000 mcg SUBLINGUAL DAILY
Lotemax SM 0.38 % Drops,Gel
1 drp BOTH EYES DAILY
Desitin Multi-Purpose 71.3 % Ointment
1 applic TOPICAL DAILYPRN PRN (Reason: sores)
Hair, Skin and Nails (biotin) 10,000 mcg Tablet,Chewable
10,000 mcg PO DAILY
alprazolam [Xanax] 0.25 mg tablet
0.25 mg PO HS
guaifenesin 600 mg tablet extended release 12hr
600 mg PO BIDPRN PRN (Reason: cough)
Discontinued
amiodarone 200 mg Tablet
200 mg PO DAILY
dabigatran etexilate [Pradaxa] 75 mg Capsule
75 mg PO Q12H
sennosides [senna] 8.6 mg Tablet
8.6 mg PO BID
levothyroxine 25 mcg Tablet
25 mcg PO DAILY AT 0700
Restore Calcium Alginate 2 X 2 ' Bandage
1 ea TOPICAL MOWEFR
Rx Instructions:
one application MOWEFR extremities
Discharge Orders:
Discharge Patient (As Directed); Ordered 12/15/24
Ordered By: Claudy Lua
Discharge Date and Time
Print Language: LITHUANIAN
[2024-12-15 15:15] VITALS: BP 106/75
== END 2024-12-15 15:21 | DRG 871 ==
LOC: 2 NORTH 11:40
PROVIDERS: Hospitalist; Internal Medicine Cardiovascular Disease; Physician Assistant; ADMITTING PHYSICIAN Internal Medicine; CONSULT PHYSICIAN Nuclear Medicine Nuclear Cardiology; EMERGENCY PHYSICIAN Emergency Medicine; FAMILY PHYSICIAN Internal Medicine; OTHER PHYSICIAN Internal Medicine Infectious Disease
DX: A41.9 Sepsis, unspecified organism (principal); G92.8 Other toxic encephalopathy; I50.33 Acute on chronic diastolic (congestive) heart failure; N39.0 Urinary tract infection, site not specified; I48.19 Other persistent atrial fibrillation; I13.0 Hypertensive heart and chronic kidney disease with heart failure and stage 1 through stage 4 chronic kidney disease, or unspecified chronic kidney disease; N17.9 Acute kidney failure, unspecified; E87.6 Hypokalemia; E83.42 Hypomagnesemia; N18.9 Chronic kidney disease, unspecified; I89.0 Lymphedema, not elsewhere classified; F41.9 Anxiety disorder, unspecified; F32.A Depression, unspecified; E03.9 Hypothyroidism, unspecified; K21.9 Gastro-esophageal reflux disease without esophagitis; E66.01 Morbid (severe) obesity due to excess calories; Z68.36 Body mass index [BMI] 36.0-36.9, adult; R68.0 Hypothermia, not associated with low environmental temperature; E78.00 Pure hypercholesterolemia, unspecified; J45.909 Unspecified asthma, uncomplicated; Z88.0 Allergy status to penicillin; M19.90 Unspecified osteoarthritis, unspecified site; Z79.02 Long term (current) use of antithrombotics/antiplatelets; Z79.899 Other long term (current) drug therapy; Z79.890 Hormone replacement therapy; L29.9 Pruritus, unspecified; K59.09 Other constipation; Z11.52 Encounter for screening for COVID-19
CPT/HCPCS: 51701; 70450; 71045; 80048; 80053; 81003; 81015; 82248; 82533; 82550; 83605; 83735; 83880; 84443; 85025; 85027; 87040; 87070; 87077; 87086; 87147; 87186; 87502; 87811; 93005; 93306; 97116; 97163; 97167; 97530; 97535; 99285; J1335